=== PATIENT | female | born 1990 | race Caucasian/White ===

== ENCOUNTER 2019-03-15 00:11 | Emergency (ER) | payer BC, MEDICAID ==
--- NOTE | 2019-03-15 00:38 | ERPHSYRPT ---
- History of Present Illness Time Seen by Provider: 03/15/19 00:38 Source: patient, family, other (Dad) Exam Limitations: no limitations Patient Subjective Stated Complaint: pt state she was at home sitting on couch when she felt a sudden stabbing pain in her l lower back. pt has just finished round of antibiotics for uti, states she felt better aftyer the antibiotic was completed Triage Nursing Assessment: pt is alert and oriented. gauradind left side. pt is crying and grimacing in pain. rates pain as 8/10 Physician History: patient was sitting on a couch and heard a pop in her back and it started hurting in the left midback below left scapula. Pain gets worse with movement of her trunk. patient just completed the antibiotic for UTI. Patient denies any urinary or genital system symptoms. Timing/Duration: today Method of Injury: bending Quality: sharp Back Pain Location: paraspinous muscles (left thoracic paraspinal muscle.) Severity of Pain-Max: severe Severity of Pain-Current: severe Modifying Factors: Improves With: movement Associated Symptoms: muscle spasms, No fever, No chills, No sweating, No urinary incontinence, No loss of bowel control, No constipation, No nausea, No vomiting, No problems urinating, No light-headedness, No dizziness, No numbness in legs/feet, No weakness, No sensory/motor loss, No tingling in legs/feet, No lower back pain Previous symptoms: no prior history Allergies/Adverse Reactions: Sulfa (Sulfonamide Antibiotics) Allergy (Verified 03/15/19 00:26) Hx Tetanus, Diphtheria Vaccination/Date Given: Yes Hx Influenza Vaccination/Date Given: No Hx Pneumococcal Vaccination/Date Given: No - Review of Systems Constitutional: No Fever, No Chills Eyes: No Symptoms Ears, Nose, & Throat: No Symptoms Respiratory: No Cough, No Dyspnea Cardiac: No Chest Pain, No Edema, No Syncope Abdominal/Gastrointestinal: No Abdominal Pain, No Nausea, No Vomiting, No Diarrhea Genitourinary Symptoms: Other (LMP now, denies ingesting .), No Dysuria Musculoskeletal: Other (left infrascapular thoracic area paraspinal muscle pain , spasm, weight tenderness.), No Back Pain, No Neck Pain Skin: No Rash Neurological: No Dizziness, No Focal Weakness, No Paralysis, No Parasthesia, No Seizure, No Sensory Changes, No Speech Changes, No Tremors Psychological: No Symptoms Endocrine: No Symptoms All Other Systems: Reviewed and Negative - Past Medical History Pertinent Past Medical History: No - Past Surgical History Past Surgical History: No - Social History Smoking Status: Never smoker Exposure to second hand smoke: No Drug Use: none Patient Lives Alone: No - Female History Hx Last Menstrual Period: 03/14/19 Hx Now: No - Nursing Vital Signs Nursing Vital Signs: Initial Vital Signs Temperature 97.1 F 03/15/19 00:18 Pulse Rate 76 03/15/19 00:18 Respiratory Rate 18 03/15/19 00:18 Blood Pressure 124/72 03/15/19 00:18 O2 Sat by Pulse Oximetry 97 03/15/19 00:18 Pain Scale Pain Intensity 8 - Physical Exam General Appearance: no apparent distress, alert, other (patient examined in the presence of her father.) Eye Exam: PERRL/EOMI, eyes nml inspection Neck Exam: normal inspection, non-tender, supple, full range of motion, No meningismus, No midline tenderness Respiratory Exam: normal breath sounds, lungs clear, No chest tenderness, No respiratory distress Cardiovascular Exam: regular rate/rhythm, normal heart sounds, normal peripheral pulses Gastrointestinal Exam: soft, normal bowel sounds, No tenderness, No distention, No mass, No guarding, No ecchymosis, No pulsatile mass, No rebound, No hernia, No hepatomegaly, No organomegaly, No splenomegaly, No bruit Pelvic Exam: deferred Rectal Exam: deferred Back Exam: normal inspection, decreased range of motion, muscle spasm, other ( left infrascapular thoracic area paraspinal muscle pain, spasm, weight tenderness.painful range of motion of.), No CVA tenderness, No vertebral tenderness, No rash, No point tenderness Extremity Exam: normal inspection, normal range of motion, No calf tenderness, No pedal edema Neurologic Exam: alert, oriented x 3, cooperative, 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, normal mood/affect, nml station & gait, sensation nml, No motor deficits Skin Exam: normal color, warm, dry, No rash, No cyanosis SpO2 Interpretation: normal SpO2: 97 O2 Delivery: Room Air - Course Nursing assessment & vital signs reviewed: Yes Ordered Tests: Medication Summary Discontinued Medications Generic Name Dose Route Start Last Admin Trade Name Freq PRN Reason Stop Dose Admin Hydrocodone Bitart/Acetaminophen 1 tab 03/15/19 00:42 [place] 5/325 Mg PO 03/15/19 00:43 STAT ONE Hydrocodone Bitart/Acetaminophen Confirm 03/15/19 00:48 [place] 5/325 Mg Administered 03/15/19 00:49 Dose 1 tab .ROUTE .STK-MED ONE Cyclobenzaprine HCl 10 mg 03/15/19 00:42 Cyclobenzaprine 10 Mg PO 03/15/19 00:43 STAT ONE Cyclobenzaprine HCl Confirm 03/15/19 00:48 Cyclobenzaprine 10 Mg Administered 03/15/19 00:49 Dose 10 mg .ROUTE .STK-MED ONE Dexamethasone Sodium Phosphate 4 mg 03/15/19 00:42 Decadron 10mg Inj. IM 03/15/19 00:43 STAT ONE Dexamethasone Sodium Phosphate Confirm 03/15/19 00:43 Decadron 4 Mg Inj Administered 03/15/19 00:44 Dose 4 mg .ROUTE .STK-MED ONE Ketorolac Tromethamine 30 mg 03/15/19 00:42 Toradol 30 Mg Injection IM 03/15/19 00:43 STAT ONE Ketorolac Tromethamine Confirm 03/15/19 00:48 Toradol 30 Mg Injection Administered 03/15/19 00:49 Dose 30 mg .ROUTE .STK-MED ONE Lidocaine HCl 4 ml 03/15/19 00:42 Xylocaine 1% Hcl 20 Ml Mdv IJ 03/15/19 00:43 STAT ONE Lidocaine HCl Confirm 03/15/19 00:43 Xylocaine 1% Hcl 20 Ml Mdv Administered 03/15/19 00:44 Dose 1 ml .ROUTE .STK-MED ONE Ondansetron HCl 4 mg 03/15/19 00:47 Zofran Odt 4 Mg PO 03/15/19 00:48 STAT ONE - Progress Progress: unchanged Progress Note: left thoracic or infrascapular paraspinal trigger point injection done with lidocaine 1% 4 mL and 4 mg of Decadron under aseptic precautions in presence of patient's father and also female nurse. No complications. Patient tolerated the procedure well. No life or limb threatening condition on discharge. 03/15/19 00:48 03/15/19 00:57 I advised the patient and her father that day showed that come back to the ER in case of any emergency or new symptoms or worsening symptoms. They understood and agreed with the plan. No life or limb threatening condition based on my clinical judgment on discharge. - Departure Departure Disposition: Home Clinical Impression: Thoracic myofascial strain Qualifiers: Encounter type: initial encounter Qualified Code(s): S29.019A - Strain of muscle and tendon of unspecified wall of thorax, initial encounter Condition: Good Critical Care Time: No Referrals: MARIA T VAUGHAN NP [Primary Care Provider] - 03/16/19 Forms: Work/School Release Form Prescriptions: Cyclobenzaprine HCl 10 mg [Cyclobenzaprine 10 MG] 10 mg PO BID 4 Days #8 tablet Indomethacin 25 mg [Indocin 25 MG] 25 mg PO BID 4 Days #8 capsule
[2019-03-15] MEDS ORDERED: NORCO 5/325 MG PO ONE (00:42)
[2019-03-15] MEDS ORDERED: TORAdol 30 mg Injection IM ONE (00:42)
[2019-03-15] MEDS ORDERED: DECADRON 10MG INJ. IM ONE (00:42)
[2019-03-15] MEDS ORDERED: XYLOCAINE 1% HCL 20 ML MDV IJ ONE (00:42)
[2019-03-15] MEDS ORDERED: Cyclobenzaprine 10 MG PO ONE (00:42)
[2019-03-15] MEDS ORDERED: XYLOCAINE 1% HCL 20 ML MDV ONE (00:43)
[2019-03-15] MEDS ORDERED: Decadron 4 MG INJ ONE (00:43)
[2019-03-15] MEDS ORDERED: ZOFRAN ODT 4 MG PO ONE (00:47)
[2019-03-15] MEDS ORDERED: Cyclobenzaprine 10 MG ONE (00:48)
[2019-03-15] MEDS ORDERED: TORAdol 30 mg Injection ONE (00:48)
[2019-03-15] MEDS ORDERED: NORCO 5/325 MG ONE (00:48)
[2019-03-15] MEDS ORDERED: ZOFRAN ODT 4 MG ONE (01:14)
[2019-03-15 01:55] VITALS: BP 105/55; PULSE 55; O2SAT 99
== END 2019-03-15 02:06 | disposition home or self-care (01) ==
LOC: ED 00:11
DX: S29.019A Strain of muscle and tendon of unspecified wall of thorax, initial encounter (principal)
CPT/HCPCS: 96372; 99284; J1100; J1885; Q0162; A9270-GY

== ENCOUNTER 2019-05-24 20:47 | Emergency (ER) | payer MEDICAID ==
[2019-05-24] MEDS ORDERED: Zofran 4 MG/2 ML VIAL IV ONE (21:45)
[2019-05-24] MEDS ORDERED: TORAdol 30 mg Injection IV ONE (21:46)
--- NOTE | 2019-05-24 21:46 | ERPHSYRPT ---
- History of Present Illness Time Seen by Provider: 05/24/19 21:28 Historian: patient, family Exam Limitations: no limitations Patient Subjective Stated Complaint: Sharp upper abdomen pain starting approximately 6 days ago. Has had nausea, diarrhea and decreased appetite. Went to [facility] today and had urinalysis, blood work and [facility] . Triage Nursing Assessment: Patient skin warm and dry, lips chapped. Patient guarding abdomen and is tender to palpation. Nausea at this time without emesis. Hypoactive bowel sounds over all quads, RUQ worse. Unable to even sip water without nausea. Physician History: POSITIVE RUQ TENDERNESS ; STARTED TUESDAY AT WORK AFTER EATING A SANDWICH . GENERALLY HEALTHY LAST MENSES 2 WEEKS AGO . NEGATIVE FEVER /CHILLS. 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 Timing/Duration: day(s) (6-7) Activities at Onset: none Quality: cramping, sharpness Abdominal Pain Onset Location: RUQ, LUQ, RLQ Pain Radiation: scapula, back Severity of Pain-Max: moderate Severity of Pain-Current: moderate Modifying Factors: Improves With: eating Associated Symptoms: nausea Previous symptoms: no prior history Allergies/Adverse Reactions: Sulfa (Sulfonamide Antibiotics) Allergy (Verified 05/24/19 21:49) Hx Tetanus, Diphtheria Vaccination/Date Given: Yes Hx Influenza Vaccination/Date Given: No Hx Pneumococcal Vaccination/Date Given: No - Review of Systems Constitutional: Fatigue Eyes: No Symptoms Ears, Nose, & Throat: No Symptoms Respiratory: No Symptoms Cardiac: No Symptoms Abdominal/Gastrointestinal: Abdominal Pain, Nausea, Other (PAIN) Genitourinary Symptoms: No Symptoms Musculoskeletal: Back Pain Skin: No Symptoms Neurological: No Symptoms Psychological: No Symptoms Endocrine: No Symptoms Hematologic/Lymphatic: No Symptoms Immunological/Allergic: No Symptoms All Other Systems: Reviewed and Negative - Past Medical History Pertinent Past Medical History: No Neurological History: No Pertinent History ENT History: No Pertinent History Cardiac History: No Pertinent History Respiratory History: No Pertinent History Endocrine Medical History: No Pertinent History Musculoskeletal History: No Pertinent History GI Medical History: No Pertinent History History: No Pertinent History Psycho-Social History: No Pertinent History Female Reproductive Disorders: No Pertinent History - Past Surgical History Past Surgical History: Yes (tubes in ears) Neuro Surgical History: No Pertinent History Cardiac: No Pertinent History Respiratory: No Pertinent History Gastrointestinal: No Pertinent History Genitourinary: No Pertinent History Musculoskeletal: No Pertinent History Female Surgical History: No Pertinent History - Social History Smoking Status: Never smoker Exposure to second hand smoke: No Drug Use: none Patient Lives Alone: No - Female History Hx Last Menstrual Period: 2 weeks ago Hx Now: No - Nursing Vital Signs Nursing Vital Signs: Initial Vital Signs Temperature 98.2 F 05/24/19 20:48 Pulse Rate 92 H 05/24/19 20:48 Respiratory Rate 20 05/24/19 20:48 Blood Pressure 110/74 05/24/19 20:48 O2 Sat by Pulse Oximetry 98 05/24/19 20:48 Pain Scale Pain Intensity 2 - Physical Exam General Appearance: mild distress Eye Exam: PERRL/EOMI, eyes nml inspection Ears, Nose, Throat Exam: normal ENT inspection, TMs normal, pharynx normal, moist mucous membranes Neck Exam: normal inspection, non-tender, supple, full range of motion, No meningismus Respiratory Exam: normal breath sounds, chest tenderness, lungs clear, No respiratory distress Cardiovascular Exam: regular rate/rhythm, normal heart sounds, normal peripheral pulses, No murmur, No friction rub Gastrointestinal/Abdomen Exam: tenderness (RLQ,RUQ), rebound (RUQ/RLQ), No guarding, No organomegaly, No splenomegaly Pelvic Exam: other (DENIES PAIN WITH INTERCOARSE DENIES VAG D/C OR UTI 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 ) Back Exam: normal inspection, normal range of motion, No CVA tenderness, No vertebral tenderness, No decreased range of motion Extremity Exam: normal inspection, normal range of motion, pelvis stable Neurologic Exam: alert, oriented x 3, cooperative, 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, normal mood/affect, nml cerebellar function, nml station & gait Skin Exam: normal color, warm, dry, rash, petechiae Lymphatic Exam: adenopathy, axilla node tender (L), axilla node tender (R) SpO2 Interpretation: normal SpO2: 98 O2 Delivery: Room Air - Course Nursing assessment & vital signs reviewed: Yes Ordered Tests: Active Orders 24 hr Category Date Time Status IV Insertion STAT Care 05/24/19 21:44 Active ABDOMEN AND PELVIS W CONTRAST [CT] Stat Exams 05/24/19 23:28 Taken GALLBLADDER [US] Stat Exams 05/24/19 22:49 Taken KUB Stat Exams 05/24/19 22:25 Taken CBC W DIFF Stat Lab 05/24/19 21:50 Completed CMP Stat Lab 05/24/19 21:50 Completed Medication Summary Discontinued Medications Generic Name Dose Route Start Last Admin Trade Name Patti PRN Reason Stop Dose Admin Hyoscyamine 0.25 mg 05/25/19 00:40 05/25/19 01:05 Anaspaz 0.125 Mg PO 05/25/19 00:41 0.25 mg 1XONLY ONE Administration Ketorolac Tromethamine 30 mg 05/24/19 21:46 05/24/19 21:49 Toradol 30 Mg Injection IV 05/24/19 21:47 30 mg STAT ONE Administration Ketorolac Tromethamine Confirm 05/24/19 21:47 Toradol 30 Mg Injection Administered 05/24/19 21:48 Dose 30 mg .ROUTE .STK-MED ONE Ondansetron HCl 4 mg 05/24/19 21:45 05/24/19 21:49 Zofran 4 Mg/2 Ml Vial IV 05/24/19 21:46 4 mg STAT ONE Administration Ondansetron HCl Confirm 05/24/19 21:47 Zofran 4 Mg/2 Ml Vial Administered 05/24/19 21:48 Dose 4 mg .ROUTE .STK-MED ONE Lab/Rad Data: Laboratory Result Diagrams 05/24/19 21:50 05/24/19 21:50 Laboratory Results 05/24/19 05/24/19 Range/Units 21:50 21:50 WBC 10.1 (4.0-10.5) K/mm3 RBC 4.43 (4.1-5.4) M/mm3 Hgb 13.7 (12.0-16.0) gm/dl Hct 39.9 (35-47) % MCV 90.1 (78-100) fl MCH 30.9 (26-32) pg MCHC 34.3 (32-36) g/dl RDW 12.1 (11.5-14.0) % Plt Count 249 (150-450) K/mm3 MPV 9.4 (6-9.5) fl Gran % 84.7 H (36.0-66.0) % Eos # (Auto) 0.15 (0-0.5) Absolute Lymphs (auto) 0.76 L (1.0-4.6) Absolute Monos (auto) 0.62 (0.0-1.3) Lymphocytes % 7.5 L (24.0-44.0) % Monocytes % 6.2 (0.0-12.0) % Eosinophils % 1.5 (0.00-5.0) % Basophils % 0.1 (0.0-0.4) % Absolute Granulocytes 8.54 H (1.4-6.9) Basophils # 0.01 (0-0.4) Sodium 137 (137-145) mmol/L Potassium 3.9 (3.5-5.1) mmol/L Chloride 104 (98-107) mmol/L Carbon Dioxide 23 (22-30) mmol/L Anion Gap 14.7 (5-15) MEQ/L BUN 16 (7-17) mg/dL Creatinine 0.66 (0.52-1.04) mg/dL Estimated GFR > 60.0 ML/MIN Glucose 95 (74-106) mg/dL Calcium 9.2 (8.4-10.2) mg/dL Total Bilirubin 1.10 (0.2-1.3) mg/dL AST 24 (14-36) U/L ALT 15 (0-35) U/L Alkaline Phosphatase 75 (38-126) U/L Serum Total Protein 7.9 (6.3-8.2) g/dL Albumin 4.3 (3.5-5.0) g/dL - Progress Progress: improved Counseled pt/family regarding: lab results, diagnosis, need for follow-up, rad results - Departure Departure Disposition: Home Clinical Impression: IBS (irritable bowel syndrome) Qualifiers: Irritable bowel syndrome type: without diarrhea Qualified Code(s): K58.9 - Irritable bowel syndrome without diarrhea Condition: Stable Critical Care Time: No Referrals: DIVYA CATALAN [Primary Care Provider] -
[2019-05-24] MEDS ORDERED: Zofran 4 MG/2 ML VIAL ONE (21:47)
[2019-05-24] MEDS ORDERED: TORAdol 30 mg Injection ONE (21:47)
[2019-05-24 21:56] LABS: Absolute Neutrophil Ct (ANC) 8.54 (1.4-6.9); BASOPHIL % 0.1 % (0.0-0.4); Basophil (Absolute #) 0.01 (0-0.4); Eosinophil % 1.5 % (0.00-5.0); Eosinophil (Absolute #) 0.15 (0-0.5); Hematocrit 39.9 % (35-47); Hemoglobin 13.7 gm/dl (12.0-16.0); Lymphocyte (Absolute #) 0.76 (1.0-4.6); Lymphocytes % 7.5 % (24.0-44.0); Mean Cell Volume 90.1 fl (78-100); Mean Corpuscular Hemoglobin 30.9 pg (26-32); Mean Corpuscular Hgb Concent. 34.3 g/dl (32-36); Mean Platelet Volume 9.4 fl (6-9.5); Monocyte (Absolute #) 0.62 (0.0-1.3); Monocytes % 6.2 % (0.0-12.0); Neutrophil % 84.7 % (36.0-66.0); Platelet Count 249 K/mm3 (150-450); Red Blood Count 4.43 M/mm3 (4.1-5.4); Red Cell Distribution Width 12.1 % (11.5-14.0); White Blood Count 10.1 K/mm3 (4.0-10.5)
[2019-05-24 22:14] LABS: ALBUMIN 4.3 g/dL (3.5-5.0); ALKALINE PHOSPHATASE 75 U/L (38-126); ANION GAP 14.7 MEQ/L (5-15); BLOOD UREA NITROGEN 16 mg/dL (7-17); CHLORIDE 104 mmol/L (98-107); Calcium 9.2 mg/dL (8.4-10.2); Carbon Dioxide 23 mmol/L (22-30); Creatinine 1 0.66 mg/dL (0.52-1.04); Glucose 95 mg/dL (74-106); Potassium 3.9 mmol/L (3.5-5.1); SGOT/AST 24 U/L (14-36); SGPT/ALT 15 U/L (0-35); SODIUM 137 mmol/L (137-145); Total Protein 7.9 g/dL (6.3-8.2)
[2019-05-25] MEDS ORDERED: ANASPAZ 0.125 MG PO ONE (00:40)
[2019-05-25 01:19] VITALS: BP 106/71; PULSE 90
[2019-05-25 01:22] VITALS: O2SAT 98
--- NOTE | 2019-05-25 09:32 | XRAY ---
Exam: Supine film of the abdomen from 05/24/2019. Comparison: None. Indication: Right sided abdominal pain in upper and lower abdomen, nausea/vomiting, and diarrhea. Findings: The bowel gas pattern appears nonspecific. No abnormal bowel distention is seen. A mild amount of scattered stool is seen within the colon. The superior aspect of the upper abdomen has not been included on this study. No definite hepatosplenomegaly is seen. No suspicious abdominal calcifications are noted. The psoas muscle margins appear unremarkable bilaterally. The bones appear unremarkable. Impression: 1. Nonspecific bowel gas pattern with a mild amount of scattered colonic stool. 2. No other significant abnormality is seen on the AP supine film of the abdomen.
--- NOTE | 2019-05-25 09:47 | XRAY ---
Exam: Gallbladder ultrasound from 05/24/2019. Comparison: None. Indication: Right upper quadrant abdominal pain. Findings: Both a portion of the pancreatic head and distal tail the pancreas were partially obscured by overlying bowel gas. The remainder of the pancreas appeared of unremarkable size, shape, and echogenicity. The liver appeared of average size and uniform echotexture. No definite hepatic mass or intrahepatic biliary duct distention is seen. The gallbladder appears of unremarkable size and reveals no intraluminal gallstones or significant biliary sludge. The gallbladder wall is not thickened measuring 1.6 mm in diameter. No pericholecystic fluid or edema is seen. The proximal common bile duct measures 2.0 mm which is normal. The right kidney measures 9.6 cm in length and reveals no gross renal mass or hydronephrosis. No dominant echogenic renal stone is identified. Impression: 1. Unremarkable gallbladder ultrasound. Specifically, I see no evidence of cholelithiasis, gallbladder enlargement, gallbladder wall thickening, or biliary duct distention. 2. Evaluation of the pancreas was limited due to bowel gas partially obscuring the pancreatic head and pancreatic tail.
--- NOTE | 2019-05-25 10:32 | XRAY ---
Exam: CT of the abdomen and pelvis with IV contrast only from 05/24/2019. CTDI: 9.25 Comparison: None. Indication: 29-year-old female with right-sided abdominal pain within both upper and lower abdomen, nausea/vomiting, and diarrhea. Earlier negative gallbladder ultrasound. Consider appendicitis. Technique: Post-IV contrast axial images were obtained through the abdomen during automated injection of 80 ML's of Isovue 370 IV contrast material. No oral contrast was given. Reconstructed coronal and sagittal images were created and reviewed. Findings: On the CT weight reduction specialist image, there is slight convexity of the spine toward the right near the thoracolumbar junction. This could be due to a problem patient positioning or a minimal dextroscoliosis. Correlate clinically. The visualized lung bases appear clear. The liver, spleen, pancreas, and adrenal glands appear grossly unremarkable. No dense calcification is seen within a normal-sized gallbladder. The kidneys appear of unremarkable size and shape. No renal mass, renal calculi, or hydronephrosis is seen. The kidneys function well on the delayed images with uniform parenchymal opacification. The abdominal aorta appears of normal diameter. No abnormal retroperitoneal lymphadenopathy is seen. There is a suggestion of a few mildly prominent mesenteric lymph nodes within the upper abdomen to the left of midline. Significance is uncertain, but equivocal. There is no evidence of free intraperitoneal air or ventral abdominal wall hernia. No bowel distention or abnormal bowel wall thickening is seen. Scattered colonic stool is seen. The appendix is visualized within the right lower quadrant and appears unremarkable without appendicolith. The uterus is anteflexed and tilted slightly to the left of midline. The ovaries appeared grossly unremarkable. No enlarged pelvic lymph nodes are seen. There is no free intraperitoneal fluid. The deep pelvic sidewalls appear unremarkable. The distal ureters are partially opacified on delay images. The urinary bladder is partially distended and appears unremarkable. The skeleton reveals no acute fracture or aggressive bone lesion. There is mild focal sclerosis on the iliac side of the right sacroiliac joint which I believe is benign and probably due to unilateral osteitis condenses ilii. On the sagittal images, there is a suggestion of mild pectus excavatum deformity at the xiphoid process. Impression: 1. No findings of acute appendicitis are seen within the right lower quadrant. 2. No other acute intra-abdominal process is noted. 3. Some other incidental findings are seen, as discussed above.
== END 2019-05-25 01:39 | disposition home or self-care (01) ==
LOC: ED 20:47
DX: K58.9 Irritable bowel syndrome, unspecified (principal)
CPT/HCPCS: 36000; 36415; 74018; 74177; 76705; 80053; 81001; 82150; 83690; 85025; 87086; 96374; 96375; 99284; J1885; J2405; A9270-GY

== ENCOUNTER 2022-04-22 20:03 | Emergency (ER) | payer OTHER ==
[2022-04-22] MEDS ORDERED: TYLENOL 325 MG PO ONE (20:46)
[2022-04-22] MEDS ORDERED: TYLENOL 325 MG ONE (21:03)
[2022-04-22 21:04] LABS: Absolute Neutrophil Ct (ANC) 6.41 x10^3/uL (1.4-6.9); Basophil (Absolute #) 0.02 x10^3/uL (0-0.4); Eosinophil % 2.9 % (0.00-5.0); Eosinophil (Absolute #) 0.28 x10^3/uL (0-0.5); Lymphocytes % 24.7 % (24.0-44.0); Mean Cell Volume 90.1 fL (78-100); Mean Corpuscular Hgb Concent. 33.3 g/dL (32-36); Mean Platelet Volume 8.7 fL (7.5-11.0); Monocyte (Absolute #) 0.57 x10^3/uL (0.0-1.3); Monocytes % 5.9 % (0.0-12.0); Platelet Count 268 x10^3/uL (150-450); Red Blood Count 3.33 x10^6/uL (4.1-5.4); White Blood Count 9.7 x10^3/uL (4.0-10.5)
[2022-04-22 21:10] LABS: Appearance CLEAR (CLEAR)
[2022-04-22 21:11] LABS: Bilirubin NEGATIVE (NEGATIVE); Dipstick done @ ? MAIN LAB; Glucose NEGATIVE (NEGATIVE); Ketones NEGATIVE (NEGATIVE); Nitrite NEGATIVE (NEGATIVE); Protein,Urine Dip 30 (Negative); RBC NEGATIVE Ery/ul (0-5); Specific Gravity >=1.030 (1.005-1.025); Urobilinogen 0.2 mg/dL (0-1)
[2022-04-22 21:18] LABS: ALBUMIN 3.4 g/dL (3.5-5.0); ALKALINE PHOSPHATASE 70 U/L (38-126); ANION GAP 8.7 MEQ/L (5-15); BLOOD UREA NITROGEN 13 mg/dL (7-17); CHLORIDE 106 mmol/L (98-107); Calcium 8.3 mg/dL (8.4-10.2); Carbon Dioxide 25 mmol/L (22-30); Creatinine 1 0.68 mg/dL (0.52-1.04); EST GLOMERULAR FILTRATION RATE > 60.0 ML/MIN; Glucose 126 mg/dL (74-106); Potassium 3.9 mmol/L (3.5-5.1); SGOT/AST 18 U/L (14-36); SGPT/ALT 16 U/L (0-35); SODIUM 136 mmol/L (137-145); Total Protein 6.4 g/dL (6.3-8.2)
[2022-04-22 21:19] LABS: Epithelial Cells RARE /HPF (FEW); Mucus SLIGHT /HPF (NEGATIVE); RBC 0-2 /HPF (0-2); WBC 0-2 /HPF (0-5)
[2022-04-22 21:20] LABS: Bacteria NONE SEEN /HPF (NEGATIVE); Urine Cultured Indicated? YES
--- NOTE | 2022-04-22 21:50 | ERPHSYRPT ---
- History of Present Illness Time Seen by Provider: 04/22/22 20:14 Historian: patient Exam Limitations: no limitations Patient Subjective Stated Complaint: pt states she is 17 weeks with twins and has been having sharp stabbing pain in the rlq of abdomen. pt states she had this same pain after falling 2 weeks ago. pt states the pain lasts for a few seconds at a time and rates 8 on 1-10 pain scale Triage Nursing Assessment: normal for this stage of . no vaginal bleeding or reported cramping. ob nurse here obtaining fhr. baby a fhr 140. baby b fhr 156 . pt on contraction monitor currently. ob nurse to assess the monitor strip at 2100. pt currently refusing iv and is taking po fluids well Physician History: 32 years old 2 para 1 at 17 weeks twin gestation presented to the ER with chief complaint of right lower quadrant sharp twinging pain lasting for few seconds intermittently for almost an hour moderate intensity and improves on its own. Denies any aggravating factors. Denies associated urinary complaints. No vaginal bleeding or discharge. Reports having similar kind of pain 2 weeks ago when she fell. No nausea or vomiting. Timing/Duration: hour(s) (1), intermittent, sudden, improved Activities at Onset: rest Quality: sharpness Abdominal Pain Onset Location: RLQ Severity of Pain-Max: moderate Severity of Pain-Current: none Modifying Factors: Improves With: nothing Associated Symptoms: denies symptoms Previous symptoms: same symptoms as today Allergies/Adverse Reactions: Sulfa (Sulfonamide Antibiotics) Allergy (Mild, Verified 04/22/22 20:46) Home Medications: Aspirin 81 gm Chew [Baby Aspirin 81 mg Chew] 162 mg PO DAILY 04/22/22 [History] Calcium Carb/Vitamin D3/Vit K1 [Calcium + D Soft Chewable Tab] 1 tab PO HS 04/22/22 [History] Docusate Sodium [Colace] 100 mg PO HS 04/22/22 [History] Folic Acid 20 mg PO HS 04/22/22 [History] Iron,Carb/Vit C/Vit B12/Folic [Iron 100 Plus Tablet] 1 tab PO HS 04/22/22 [History] Vit37/Iron/Folic Acid [Prenata Chewable Tablet] 1 each PO HS 04/22/22 [History] Hx Tetanus, Diphtheria Vaccination/Date Given: Yes Hx Influenza Vaccination/Date Given: No Hx Pneumococcal Vaccination/Date Given: No Travel Risk - International Travel Have you traveled outside of the country in past 3 weeks: No - Coronavirus Screening Are you exhibiting any of the following symptoms?: No Close contact with a COVID-19 positive Pt in past 14-21 Days: No - Vaccine Status Have you recieved a Covid-19 vaccination: Yes [employer]: [employer] - Vaccination Dates Date of 2cond Vaccination (if applicable): 2020 - Review of Systems Constitutional: No Symptoms Ears, Nose, & Throat: No Symptoms Respiratory: No Symptoms Cardiac: No Symptoms Abdominal/Gastrointestinal: Abdominal Pain Genitourinary Symptoms: Musculoskeletal: No Symptoms Skin: No Symptoms Neurological: No Symptoms Endocrine: No Symptoms Hematologic/Lymphatic: No Symptoms - Past Medical History Pertinent Past Medical History: No Neurological History: No Pertinent History ENT History: No Pertinent History Cardiac History: No Pertinent History Respiratory History: No Pertinent History Endocrine Medical History: No Pertinent History Musculoskeletal History: No Pertinent History GI Medical History: No Pertinent History History: No Pertinent History Psycho-Social History: No Pertinent History Female Reproductive Disorders: No Pertinent History - Past Surgical History Past Surgical History: Yes (tubes in ears) Neuro Surgical History: No Pertinent History Cardiac: No Pertinent History Respiratory: No Pertinent History Gastrointestinal: No Pertinent History Genitourinary: No Pertinent History Musculoskeletal: No Pertinent History Female Surgical History: No Pertinent History - Social History Smoking Status: Never smoker Exposure to second hand smoke: No Drug Use: none Patient Lives Alone: No - Female History Hx Now: Yes Expected Date of Delivery: 09/30/22 Gestational Age: 17 - Nursing Vital Signs Nursing Vital Signs: Initial Vital Signs Temperature 98 F 04/22/22 20:19 Pulse Rate 87 04/22/22 20:19 Respiratory Rate 20 04/22/22 20:19 Blood Pressure 128/65 04/22/22 20:19 O2 Sat by Pulse Oximetry 98 04/22/22 20:19 Pain Scale Pain Intensity 0 - Physical Exam General Appearance: no apparent distress, alert Eye Exam: PERRL/EOMI Ears, Nose, Throat Exam: normal ENT inspection Neck Exam: normal inspection, supple, full range of motion Respiratory Exam: normal breath sounds, lungs clear Cardiovascular Exam: regular rate/rhythm, normal heart sounds Gastrointestinal/Abdomen Exam: soft, normal bowel sounds, other (Gravid uterus), No tenderness Back Exam: normal inspection, normal range of motion, No CVA tenderness Extremity Exam: normal inspection, normal range of motion, tenderness Neurologic Exam: oriented x 3, cooperative Skin Exam: normal color SpO2 Interpretation: normal SpO2: 100 O2 Delivery: Room Air Ordered Tests: Active Orders 24 hr Category Date Time Status IV Insertion STAT Care 04/22/22 20:46 Active CBC W DIFF Stat Lab 04/22/22 21:00 Completed CMP Stat Lab 04/22/22 21:00 Completed CULTURE,URINE Stat Lab 04/22/22 21:00 Received UA W/RFX CULTURE Stat Lab 04/22/22 21:00 Completed Medication Summary Discontinued Medications Generic Name Dose Route Start Last Admin Trade Name Patti PRN Reason Stop Dose Admin Acetaminophen 975 mg 04/22/22 20:46 04/22/22 21:03 Acetaminophen 325 Mg Tablet PO 04/22/22 20:47 975 mg STAT ONE Administration Acetaminophen Confirm 04/22/22 21:03 Acetaminophen 325 Mg Tablet Administered 04/22/22 21:04 Dose 975 mg .ROUTE .Havkraft-Infratel ONE Lab/Rad Data: Laboratory Result Diagrams 04/22/22 21:00 04/22/22 21:00 Laboratory Results 04/22/22 04/22/22 04/22/22 Range/Units 21:00 21:00 21:00 WBC 9.7 (4.0-10.5) x10^3/uL RBC 3.33 L (4.1-5.4) x10^6/uL Hgb 10.0 L (12.0-16.0) g/dL Hct 30.0 L (35-47) % MCV 90.1 (78-100) fL MCH 30.0 (26-32) pg MCHC 33.3 (32-36) g/dL RDW 13.0 (11.5-14.0) % Plt Count 268 (150-450) x10^3/uL MPV 8.7 (7.5-11.0) fL Gran % 66.0 (36.0-66.0) % Immature Gran % (Auto) 0.3 (0.00-0.4) % Nucleat RBC Rel Count 0.0 (0.00-0.1) % Eos # (Auto) 0.28 (0-0.5) x10^3/uL Immature Gran # (Auto) 0.03 (0.00-0.03) x10^3u/L Absolute Lymphs (auto) 2.40 (1.0-4.6) x10^3/uL Absolute Monos (auto) 0.57 (0.0-1.3) x10^3/uL Absolute Nucleated RBC 0.00 (0.00-0.01) x10^3u/L Lymphocytes % 24.7 (24.0-44.0) % Monocytes % 5.9 (0.0-12.0) % Eosinophils % 2.9 (0.00-5.0) % Basophils % 0.2 (0.0-0.4) % Absolute Granulocytes 6.41 (1.4-6.9) x10^3/uL Basophils # 0.02 (0-0.4) x10^3/uL Sodium 136 L (137-145) mmol/L Potassium 3.9 (3.5-5.1) mmol/L Chloride 106 (98-107) mmol/L Carbon Dioxide 25 (22-30) mmol/L Anion Gap 8.7 (5-15) MEQ/L BUN 13 (7-17) mg/dL Creatinine 0.68 (0.52-1.04) mg/dL Estimated GFR > 60.0 ML/MIN Glucose 126 H (74-106) mg/dL Calcium 8.3 L (8.4-10.2) mg/dL Total Bilirubin 0.30 (0.2-1.3) mg/dL AST 18 (14-36) U/L ALT 16 (0-35) U/L Alkaline Phosphatase 70 (38-126) U/L Serum Total Protein 6.4 (6.3-8.2) g/dL Albumin 3.4 L (3.5-5.0) g/dL Urinalys Dipstick Clnc MAIN LAB Urine Color YELLOW (YELLOW) Urine Appearance CLEAR (CLEAR) Urine pH 7.0 (5-6) Ur Specific [place] >=1.030 A (1.005-1.025) POC Urine Protein Conf 30 A (Negative) Urine Ketones NEGATIVE (NEGATIVE) Urine Nitrite NEGATIVE (NEGATIVE) Urine Bilirubin NEGATIVE (NEGATIVE) Urine Urobilinogen 0.2 (0-1) mg/dL Urine Leukocytes TRACE A (NEGATIVE) Urine WBC (Auto) 0-2 (0-5) /HPF Urine RBC (Auto) 0-2 (0-2) /HPF U Epithel Cells (Auto) RARE (FEW) /HPF Urine Bacteria (Auto) NONE SEEN (NEGATIVE) /HPF Urine RBC NEGATIVE (0-5) Lloyd/ul Urine Mucus (Auto) SLIGHT A (NEGATIVE) /HPF Ur Culture Indicated? YES Urine Glucose NEGATIVE (NEGATIVE) mg/dL - Progress Progress: improved Progress Note: 04/22/22 21:48 Patient pain is improved on its own without any intervention. She is given Tylenol and no further recurrence of pain throughout her stay in the ER. She is offered fluid bolus which she refused. Baseline work-up grossly unremarkable. No UTI. Good heart tones of both fetuses in 140s and 150s. I do not think patient's pain is concerning for acute appendicitis and its improved on its own. It seems it could be round ligament pain. Recommended Tylenol and outpatient OB follow-up. Discussed signs symptoms of worsening needing return to ER which she seems understanding. Stable for discharge. Counseled pt/family regarding: lab results, diagnosis, need for follow-up - Departure Departure Disposition: Home Clinical Impression: Abdominal pain affecting Condition: Stable Critical Care Time: No Referrals: YARA REED [Primary Care Provider] - Follow up/PCP as directed (1-2 days for reevaluation) Instructions: Severe Abdominal Pain, Adult (DC) Additional Instructions: Follow-up with your OB for reevaluation tomorrow morning. Drink plenty of fluids. Take Tylenol as needed. Return to ER if have any worsening of pain, vaginal bleeding discharge, difficulty urination, fever chills etc.
[2022-04-22 22:10] VITALS: BP 105/61; PULSE 81; O2SAT 99
== END 2022-04-22 22:13 | disposition home or self-care (01) ==
LOC: ED 20:03
DX: O26.892 Other specified pregnancy related conditions, second trimester (principal); Z3A.17 17 weeks gestation of pregnancy; R10.31 Right lower quadrant pain; Z79.899 Other long term (current) drug therapy
CPT/HCPCS: 36415; 80053; 81015; 85025; 87086; 99283; A9270-GY

== ENCOUNTER 2022-12-05 08:44 | Observation (INO) | payer MEDICAID, OTHER ==
[2022-12-05] MEDS ORDERED: MORPHINE SULFATE 2 MG INJ IV ONE (10:14)
[2022-12-05] MEDS ORDERED: TYLENOL 325 MG PO ONE (10:14)
[2022-12-05] MEDS ORDERED: Sodium Chloride 0.9% 1000 ML 1,000 ML IV STA (10:14)
[2022-12-05] MEDS ORDERED: Zofran 4 MG/2 ML VIAL IV ONE (10:14)
[2022-12-05] MEDS ORDERED: MORPHINE SULFATE 2 MG INJ ONE (10:31)
[2022-12-05] MEDS ORDERED: Zofran 4 MG/2 ML VIAL ONE (10:31)
[2022-12-05] MEDS ORDERED: TYLENOL 325 MG ONE (10:31)
[2022-12-05] MEDS ORDERED: Sodium Chloride 0.9% 1000 ML 1,000 ML ONE (10:32)
[2022-12-05 10:35] LABS: BASOPHIL % 0.2 % (0.0-0.4); Basophil (Absolute #) 0.03 x10^3/uL (0-0.4); Eosinophil % 0.1 % (0.00-5.0); Eosinophil (Absolute #) 0.01 x10^3/uL (0-0.5); IMMATURE GRAN # 0.16 x10^3u/L (0.00-0.03); IMMATURE GRAN % 0.8 % (0.00-0.4); Lymphocyte (Absolute #) 0.75 x10^3/uL (1.0-4.6); Lymphocytes % 3.8 % (24.0-44.0); Mean Cell Volume 89.9 fL (78-100); Mean Corpuscular Hgb Concent. 33.3 g/dL (32-36); Mean Platelet Volume 9.1 fL (7.5-11.0); Monocyte (Absolute #) 0.82 x10^3/uL (0.0-1.3); Monocytes % 4.2 % (0.0-12.0); Neutrophil % 90.9 % (36.0-66.0); Platelet Count 259 x10^3/uL (150-450); Red Blood Count 4.67 x10^6/uL (4.1-5.4); Red Cell Distribution Width 12.5 % (11.5-14.0); White Blood Count 19.7 x10^3/uL (4.0-10.5)
[2022-12-05 10:49] LABS: ALKALINE PHOSPHATASE 128 U/L (38-126); ANION GAP 17.3 MEQ/L (5-15); BLOOD UREA NITROGEN 15 mg/dL (7-17); CHLORIDE 95 mmol/L (98-107); Calcium 8.3 mg/dL (8.4-10.2); Carbon Dioxide 24 mmol/L (22-30); Creatinine 1 0.79 mg/dL (0.52-1.04); EST GLOMERULAR FILTRATION RATE > 60.0 ML/MIN; Glucose 129 mg/dL (74-106); LIPASE 72 U/L (23-300); Potassium 3.6 mmol/L (3.5-5.1); SGOT/AST 26 U/L (14-36); SGPT/ALT 30 U/L (0-35); SODIUM 134 mmol/L (137-145); Total Protein 7.9 g/dL (6.3-8.2)
[2022-12-05] MEDS ORDERED: MORPHINE SULFATE 4 MG INJ IV ONE (11:13)
[2022-12-05 11:30] LABS: INFLUENZA A NEGATIVE (NEGATIVE); INFLUENZA B NEGATIVE (NEGATIVE); RESPIRATORY SYNCTIAL VIRUS NEGATIVE (NEGATIVE); SARS-CoV-2 Xpert Express NEGATIVE (NEGATIVE)
[2022-12-05 11:30] LABS: HCG SERUM TEST NEGATIVE (NEGATIVE)
[2022-12-05 12:13] LABS: Appearance Clear (Clear); Bacteria None Seen /HPF (None Seen); Bilirubin Negative (Negative); Blood Large (Negative); Epithelial Cells Few /HPF (None Seen); Glucose, Urine Negative (Negative); Hyaline Casts NONE SEEN /LPF (0-2); Ketones 15 (Negative); Leukocyte Esterase Trace (Negative); Nitrite Negative (Negative); Protein,Urine Dip 300 (Negative); RBC 51-100 /HPF (0-5)
[2022-12-05 12:57] LABS: ADD URINE CULTURE? YES (NO)
--- NOTE | 2022-12-05 13:11 | XRAY ---
CLINICAL HISTORY:Headache. COMPARISON:None. TECHNIQUES:Axial non-contrast CT scan of the brain was performed from the skull base to the high parietal region with reformatted images. FINDINGS: The visualized brain parenchyma shows a normal appearance. Don-white matter differentiation is maintained. No midline shifts or deformity. No intracerebral or extra axial hematoma. Normal size and configuration of the cerebral ventricles. Tiny calcification at the anterior portion of the 3rd ventricle. Normal CT appearance of the posterior fossa structures namely the cerebellar hemispheres, brainstem, and cerebellar peduncles. The IACs are unremarkable. The cerebellopontine angles are clear. The osseous structures in the skull base are unremarkable. No definite calvarium fractures. Small left high frontal parasagittal extra-axial calcification. MIld sphenoid sinusitis. Enlarged nasopharyngeal soft tissue. IMPRESSION: 1. Essentially normal CT study of the brain. 2. Enlarged nasopharyngeal soft tissue, clinical correlation is recommended, and direct visualization may also be recommended as clinically indicated. Electronically Signed by: Jaky Espinoza MD. (12/05/2022 12:08:51 IMMUNOPATHOLOGIST)
--- NOTE | 2022-12-05 13:15 | ERPHSYRPT ---
- History of Present Illness Time Seen by Provider: 12/05/22 09:23 Source: patient, family Exam Limitations: no limitations Patient Subjective Stated Complaint: dehydration Triage Nursing Assessment: Patient presents with lethargy, headache, n/v and poor PO intake for the last 2-3 days. Physician History: 32 years old female presented in the ER with chief complaint of multiple episodes of nonprojectile, nonbilious vomiting since yesterday, not able to hold much down, feels weak fatigued tired and dehydrated. Also reports subjective feeling of fever and chills with frontal headache. No difficulty movements of neck. No visual disturbance. Denies any cough or difficulty breathing. She has no diarrhea and no abdominal pain. Did notice some blood in the urine earlier. reported patient has been sleeping all day long yesterday. She is complaining of aches and pains all over. Denies any sick contact. Timing/Duration: yesterday, gradual onset, worse Severity: moderate Associated Symptoms: nausea, vomiting, fever, headaches, loss of appetite, malaise, weakness, No shortness of breath, No chest pain, No syncope Allergies/Adverse Reactions: Sulfa (Sulfonamide Antibiotics) Allergy (Mild, Verified 12/05/22 12:11) Hx Tetanus, Diphtheria Vaccination/Date Given: Yes Hx Influenza Vaccination/Date Given: No Hx Pneumococcal Vaccination/Date Given: No Immunizations Up to Date: Yes Travel Risk - International Travel Have you traveled outside of the country in past 3 weeks: No - Coronavirus Screening Symptoms: Fever, Vomiting/Diarrhea, Headaches/Body Aches/Fatigue Close contact with a COVID-19 positive Pt in past 14-21 Days: No - Vaccine Status Have you recieved a Covid-19 vaccination: Yes Scrap [place]yer: Unknown - Vaccination Dates Dates if Unknown: unknown - Review of Systems Constitutional: Fever, Chills, Fatigue, Lethargy, Weakness Eyes: No Symptoms Ears, Nose, & Throat: No Symptoms Respiratory: No Symptoms Cardiac: No Symptoms Abdominal/Gastrointestinal: Nausea, Vomiting Genitourinary Symptoms: Hematuria Musculoskeletal: Myalgias Skin: No Symptoms Neurological: Headache, No Dizziness, No Focal Weakness Psychological: No Symptoms Endocrine: No Symptoms Hematologic/Lymphatic: No Symptoms Immunological/Allergic: No Symptoms - Past Medical History Pertinent Past Medical History: No Neurological History: No Pertinent History ENT History: No Pertinent History Cardiac History: No Pertinent History Respiratory History: No Pertinent History Endocrine Medical History: No Pertinent History Musculoskeletal History: No Pertinent History GI Medical History: No Pertinent History History: No Pertinent History Psycho-Social History: No Pertinent History Female Reproductive Disorders: No Pertinent History - Past Surgical History Past Surgical History: Yes (tubes in ears) Neuro Surgical History: No Pertinent History Cardiac: No Pertinent History Respiratory: No Pertinent History Gastrointestinal: No Pertinent History Genitourinary: No Pertinent History Musculoskeletal: No Pertinent History Female Surgical History: Section Other Surgical History: 2020 and 2022 - Social History Smoking Status: Never smoker Exposure to second hand smoke: No Drug Use: none Patient Lives Alone: No - Female History Hx Now: (unkn) - Nursing Vital Signs Nursing Vital Signs: Initial Vital Signs Temperature 100.5 F 12/05/22 09:45 Pulse Rate 83 12/05/22 09:45 Respiratory Rate 18 12/05/22 09:45 Blood Pressure 115/74 12/05/22 09:45 O2 Sat by Pulse Oximetry 94 L 12/05/22 09:45 Pain Scale Pain Intensity 4 - Physical Exam General Appearance: no apparent distress, alert Eye Exam: PERRL/EOMI Ears, Nose, Throat Exam: normal ENT inspection Neck Exam: normal inspection, non-tender, supple, No meningismus, No lymphadenopathy, No midline tenderness Respiratory Exam: normal breath sounds, lungs clear Cardiovascular Exam: regular rate/rhythm, normal heart sounds Gastrointestinal/Abdomen Exam: soft, normal bowel sounds, No tenderness Back Exam: normal inspection, normal range of motion, No CVA tenderness Extremity Exam: normal inspection, normal range of motion, pelvis stable Neurologic Exam: alert, oriented x 3, cooperative, line cleaner II-XII nml as tested, normal mood/affect, nml cerebellar function, sensation nml, No motor deficits Skin Exam: normal color SpO2 Interpretation: normal SpO2: 96 O2 Delivery: Room Air Ordered Tests: Medication Summary Discontinued Medications Generic Name Dose Route Start Last Admin Trade Name Patti PRN Reason Stop Dose Admin Acetaminophen 975 mg 12/05/22 10:14 12/05/22 10:33 Acetaminophen 325 Mg Tablet PO 12/05/22 10:15 975 mg STAT ONE Administration Acetaminophen Confirm 12/05/22 10:31 Acetaminophen 325 Mg Tablet Administered 12/05/22 10:32 Dose 975 mg .ROUTE .STK-MED ONE Acetaminophen 650 mg 12/05/22 15:54 12/07/22 02:38 Acetaminophen 325 Mg Tablet PO 01/04/23 15:53 650 mg Q4H PRN PRN Administration PAIN AND/OR FEVER Albuterol/Ipratropium 3 ml 12/05/22 15:54 Ipratropium/Albuterol Sulfate 3 Ml Ampul.Neb IH 01/04/23 15:53 Q4HPRN PRN SHORTNESS OF BREATH/WHEEZING Sodium Chloride 1,000 mls @ 999 mls/hr 12/05/22 10:14 12/05/22 11:40 Sodium Chloride 0.9% 1000 Ml IV 12/05/22 11:14 Infused .Q1H1M STA Infusion Sodium Chloride Confirm 12/05/22 10:32 Sodium Chloride 0.9% 1000 Ml Administered 12/05/22 10:33 Dose 1,000 mls @ ud .ROUTE .STK-MED ONE Clindamycin HCl/Dextrose 600 mg in 50 mls @ 100 mls/hr 12/05/22 14:29 12/05/22 15:08 Clindamycin-D5w 600 Mg/50 Ml IV 12/05/22 14:58 Infused STAT STA Infusion Clindamycin HCl/Dextrose Confirm 12/05/22 14:37 Clindamycin-D5w 600 Mg/50 Ml Administered 12/05/22 14:38 Dose 600 mg in 50 mls @ ud IV .STK-MED ONE Ceftriaxone Sodium/Dextrose 2 g in 50 mls @ 100 mls/hr 12/05/22 14:39 12/05/22 15:39 Rocephin 2 Gm-D5w 50ml Bag IV 12/05/22 15:08 Infused STAT STA Infusion Ceftriaxone Sodium/Dextrose Confirm 12/05/22 15:06 Rocephin 2 Gm-D5w 50ml Bag Administered 12/05/22 15:07 Dose 2 g in 50 mls @ ud IV .STK-MED ONE Sodium Chloride 1,000 mls @ 125 mls/hr 12/05/22 15:54 12/07/22 02:35 Sodium Chloride 0.9% 1000 Ml IV 01/04/23 15:53 125 mls/hr .Q8H BAY Administration Clindamycin HCl/Dextrose 600 mg in 50 mls @ 100 mls/hr 12/05/22 22:00 06/19/23 14:50 Clindamycin-D5w 600 Mg/50 Ml IV 01/04/23 21:59 100 mls/hr Q8HT BAY Administration Ceftriaxone Sodium/Dextrose 2 g in 50 mls @ 100 mls/hr 12/06/22 10:00 12/07/22 08:58 Rocephin 2 Gm-D5w 50ml Bag IV 12/09/22 09:59 100 mls/hr Q24H10 BAY Administration Ibuprofen 600 mg 12/05/22 18:53 12/06/22 16:59 Ibuprofen 600 Mg Tablet PO 01/04/23 18:52 600 mg Q6HPRN PRN Administration PAIN AND/OR FEVER Lactobacillus Acidophilus 1 tab 12/05/22 20:00 12/07/22 08:57 Lactobacillus Acidophilus 1 Tab Tablet PO 01/04/23 19:59 1 tab DAILY BAY Administration Morphine Sulfate 2 mg 12/05/22 10:14 12/05/22 10:33 Morphine Sulfate 2 Mg/Ml Inj IV 12/05/22 10:15 2 mg STAT ONE Administration Morphine Sulfate Confirm 12/05/22 10:31 Morphine Sulfate 2 Mg/Ml Inj Administered 12/05/22 10:32 Dose 2 mg .ROUTE .STK-MED ONE Morphine Sulfate 4 mg 12/05/22 11:13 12/05/22 12:40 Morphine Sulfate 4 Mg/Ml Injection IV 12/05/22 11:14 Not Given STAT ONE Morphine Sulfate 2 mg 12/05/22 15:54 Morphine Sulfate 2 Mg/Ml Inj IV 12/10/22 15:53 Q4H PRN PRN PAIN Ondansetron HCl 4 mg 12/05/22 10:14 12/05/22 10:33 Ondansetron Hcl 4 Mg/2 Ml Vial IV 12/05/22 10:15 4 mg STAT ONE Administration Ondansetron HCl Confirm 12/05/22 10:31 Ondansetron Hcl 4 Mg/2 Ml Vial Administered 12/05/22 10:32 Dose 4 mg .ROUTE .STK-MED ONE Ondansetron HCl 4 mg 12/05/22 15:54 Ondansetron Hcl 4 Mg/2 Ml Vial IV 01/04/23 15:53 Q6H PRN PRN NAUSEA/VOMITING Pantoprazole Sodium 40 mg 12/06/22 10:00 Pantoprazole 40 Mg Vial IV 01/05/23 09:59 Q24H10 BAY Pantoprazole Sodium 40 mg 12/05/22 17:00 12/07/22 08:58 Pantoprazole 40 Mg Vial IV 01/04/23 16:59 40 mg Q24H10 BAY Administration Lab/Rad Data: Laboratory Result Diagrams 12/05/22 10:30 12/05/22 10:30 Laboratory Results 12/05/22 12/05/22 12/05/22 Range/Units 13:44 11:56 10:45 WBC (4.0-10.5) x10^3/uL RBC (4.1-5.4) x10^6/uL Hgb (12.0-16.0) g/dL Hct (35-47) % MCV (78-100) fL MCH (26-32) pg MCHC (32-36) g/dL RDW (11.5-14.0) % Plt Count (150-450) x10^3/uL MPV (7.5-11.0) fL Gran % (36.0-66.0) % Immature Gran % (Auto) (0.00-0.4) % Nucleat RBC Rel Count (0.00-0.1) % Eos # (Auto) (0-0.5) x10^3/uL Immature Gran # (Auto) (0.00-0.03) x10^3u/L Absolute Lymphs (auto) (1.0-4.6) x10^3/uL Absolute Monos (auto) (0.0-1.3) x10^3/uL Absolute Nucleated RBC (0.00-0.01) x10^3u/L Lymphocytes % (24.0-44.0) % Monocytes % (0.0-12.0) % Eosinophils % (0.00-5.0) % Basophils % (0.0-0.4) % Absolute Granulocytes (1.4-6.9) x10^3/uL Basophils # (0-0.4) x10^3/uL Sodium (137-145) mmol/L Potassium (3.5-5.1) mmol/L Chloride (98-107) mmol/L Carbon Dioxide (22-30) mmol/L Anion Gap (5-15) MEQ/L BUN (7-17) mg/dL Creatinine (0.52-1.04) mg/dL Estimated GFR ML/MIN Glucose (74-106) mg/dL Lactic Acid (0.4-2.0) Calcium (8.4-10.2) mg/dL Total Bilirubin (0.2-1.3) mg/dL AST (14-36) U/L ALT (0-35) U/L Alkaline Phosphatase (38-126) U/L Serum Total Protein (6.3-8.2) g/dL Albumin (3.5-5.0) g/dL Lipase (23-300) U/L Procalcitonin (0.030-0.080) ng/mL Serum HCG, Qual (NEGATIVE) Urine Color Yellow (Yellow) Urine Appearance Clear (Clear) Urine pH 6.0 (4.6-8.0) Ur Specific [place] 1.020 (1.005-1.030) Urine Protein 300 A (Negative) Urine Glucose (UA) Negative (Negative) mg/dL Urine Ketones 15 A (Negative) Urine Blood Large A (Negative) Urine Nitrite Negative (Negative) Urine Bilirubin Negative (Negative) Urine Urobilinogen 1.0 A (0.2) mg/dL Ur Leukocyte Esterase Trace A (Negative) U Hyaline Cast (Auto) NONE SEEN (0-2) /LPF Urine Microscopic RBC 51-100 A (0-5) /HPF Urine Microscopic WBC 6-10 A (0-5) /HPF Ur Epithelial Cells Few (None Seen) /HPF Urine Bacteria None Seen (None Seen) /HPF Urine Culture Reflexed YES (NO) Influenza Type A Ag NEGATIVE (NEGATIVE) Influenza Type B Ag NEGATIVE (NEGATIVE) RSV (PCR) NEGATIVE (NEGATIVE) SARS-CoV-2 (PCR) NEGATIVE (NEGATIVE) Group A Strep Antibody DETECTED (NEGATIVE) 12/05/22 12/05/22 12/05/22 Range/Units 10:30 10:30 10:30 WBC (4.0-10.5) x10^3/uL RBC (4.1-5.4) x10^6/uL Hgb (12.0-16.0) g/dL Hct (35-47) % MCV (78-100) fL MCH (26-32) pg MCHC (32-36) g/dL RDW (11.5-14.0) % Plt Count (150-450) x10^3/uL MPV (7.5-11.0) fL Gran % (36.0-66.0) % Immature Gran % (Auto) (0.00-0.4) % Nucleat RBC Rel Count (0.00-0.1) % Eos # (Auto) (0-0.5) x10^3/uL Immature Gran # (Auto) (0.00-0.03) x10^3u/L Absolute Lymphs (auto) (1.0-4.6) x10^3/uL Absolute Monos (auto) (0.0-1.3) x10^3/uL Absolute Nucleated RBC (0.00-0.01) x10^3u/L Lymphocytes % (24.0-44.0) % Monocytes % (0.0-12.0) % Eosinophils % (0.00-5.0) % Basophils % (0.0-0.4) % Absolute Granulocytes (1.4-6.9) x10^3/uL Basophils # (0-0.4) x10^3/uL Sodium 134 L (137-145) mmol/L Potassium 3.6 (3.5-5.1) mmol/L Chloride 95 L (98-107) mmol/L Carbon Dioxide 24 (22-30) mmol/L Anion Gap 17.3 H (5-15) MEQ/L BUN 15 (7-17) mg/dL Creatinine 0.79 (0.52-1.04) mg/dL Estimated GFR > 60.0 ML/MIN Glucose 129 H (74-106) mg/dL Lactic Acid (0.4-2.0) Calcium 8.3 L (8.4-10.2) mg/dL Total Bilirubin 0.70 (0.2-1.3) mg/dL AST 26 (14-36) U/L ALT 30 (0-35) U/L Alkaline Phosphatase 128 H (38-126) U/L Serum Total Protein 7.9 (6.3-8.2) g/dL Albumin 4.0 (3.5-5.0) g/dL Lipase 72 (23-300) U/L Procalcitonin 0.245 H (0.030-0.080) ng/mL Serum HCG, Qual NEGATIVE (NEGATIVE) Urine Color (Yellow) Urine Appearance (Clear) Urine pH (4.6-8.0) Ur Specific [place] (1.005-1.030) Urine Protein (Negative) Urine Glucose (UA) (Negative) mg/dL Urine Ketones (Negative) Urine Blood (Negative) Urine Nitrite (Negative) Urine Bilirubin (Negative) Urine Urobilinogen (0.2) mg/dL Ur Leukocyte Esterase (Negative) U Hyaline Cast (Auto) (0-2) /LPF Urine Microscopic RBC (0-5) /HPF Urine Microscopic WBC (0-5) /HPF Ur Epithelial Cells (None Seen) /HPF Urine Bacteria (None Seen) /HPF Urine Culture Reflexed (NO) Influenza Type A Ag (NEGATIVE) Influenza Type B Ag (NEGATIVE) RSV (PCR) (NEGATIVE) SARS-CoV-2 (PCR) (NEGATIVE) Group A Strep Antibody (NEGATIVE) 12/05/22 12/05/22 Range/Units 10:30 10:30 WBC 19.7 H (4.0-10.5) x10^3/uL RBC 4.67 (4.1-5.4) x10^6/uL Hgb 14.0 (12.0-16.0) g/dL Hct 42.0 (35-47) % MCV 89.9 (78-100) fL MCH 30.0 (26-32) pg MCHC 33.3 (32-36) g/dL RDW 12.5 (11.5-14.0) % Plt Count 259 (150-450) x10^3/uL MPV 9.1 (7.5-11.0) fL Gran % 90.9 H (36.0-66.0) % Immature Gran % (Auto) 0.8 H (0.00-0.4) % Nucleat RBC Rel Count 0.0 (0.00-0.1) % Eos # (Auto) 0.01 (0-0.5) x10^3/uL Immature Gran # (Auto) 0.16 H (0.00-0.03) x10^3u/L Absolute Lymphs (auto) 0.75 L (1.0-4.6) x10^3/uL Absolute Monos (auto) 0.82 (0.0-1.3) x10^3/uL Absolute Nucleated RBC 0.00 (0.00-0.01) x10^3u/L Lymphocytes % 3.8 L (24.0-44.0) % Monocytes % 4.2 (0.0-12.0) % Eosinophils % 0.1 (0.00-5.0) % Basophils % 0.2 (0.0-0.4) % Absolute Granulocytes 17.90 H (1.4-6.9) x10^3/uL Basophils # 0.03 (0-0.4) x10^3/uL Sodium (137-145) mmol/L Potassium (3.5-5.1) mmol/L Chloride (98-107) mmol/L Carbon Dioxide (22-30) mmol/L Anion Gap (5-15) MEQ/L BUN (7-17) mg/dL Creatinine (0.52-1.04) mg/dL Estimated GFR ML/MIN Glucose (74-106) mg/dL Lactic Acid 1.3 (0.4-2.0) Calcium (8.4-10.2) mg/dL Total Bilirubin (0.2-1.3) mg/dL AST (14-36) U/L ALT (0-35) U/L Alkaline Phosphatase (38-126) U/L Serum Total Protein (6.3-8.2) g/dL Albumin (3.5-5.0) g/dL Lipase (23-300) U/L Procalcitonin (0.030-0.080) ng/mL Serum HCG, Qual (NEGATIVE) Urine Color (Yellow) Urine Appearance (Clear) Urine pH (4.6-8.0) Ur Specific [place] (1.005-1.030) Urine Protein (Negative) Urine Glucose (UA) (Negative) mg/dL Urine Ketones (Negative) Urine Blood (Negative) Urine Nitrite (Negative) Urine Bilirubin (Negative) Urine Urobilinogen (0.2) mg/dL Ur Leukocyte Esterase (Negative) U Hyaline Cast (Auto) (0-2) /LPF Urine Microscopic RBC (0-5) /HPF Urine Microscopic WBC (0-5) /HPF Ur Epithelial Cells (None Seen) /HPF Urine Bacteria (None Seen) /HPF Urine Culture Reflexed (NO) Influenza Type A Ag (NEGATIVE) Influenza Type B Ag (NEGATIVE) RSV (PCR) (NEGATIVE) SARS-CoV-2 (PCR) (NEGATIVE) Group A Strep Antibody (NEGATIVE) - Progress Progress: improved, re-examined Progress Note: 12/05/22 13:15 32 years old female presented in the ER with chief complaint of multiple episodes of nonprojectile, nonbilious vomiting since yesterday, not able to hold much down, feels weak fatigued tired and dehydrated. Also reports subjective feeling of fever and chills with frontal headache. No difficulty movements of neck. No visual disturbance. Denies any cough or difficulty breathing. She has no diarrhea and no abdominal pain. Did notice some blood in the urine earlier. reported patient has been sleeping all day long yesterday. She is complaining of aches and pains all over. Denies any sick contact. Given fluids and symptomatic treatment, on reevaluation she is feeling much better. Patient had a temperature of 1-2.5 on presentation and improved to 99 on reeval. Work-up showed white count of 19, chemistries showed finding consistent with dehydration. Has normal lactate, elevated procalcitonin 1.24. No obvious focus of infection other than pharyngitis. No signs of meningismus. 12/05/22 15:[address] head which is negative for any acute intracranial findings. CT abdomen pelvis is negative as well. Chest x-ray is negative for any acute cardiopulmonary findings reviewed by me, official report is pending. Patient has a positive strep. She has a midline uvula and no deviation. Airway well intact. No signs of compromise. No neck swelling. No swelling floor of mouth. She is started on clindamycin and given a dose of Rocephin as well. Patient I believe having strep associated sepsis and darkening her urine is secondary to possible acute glomerulonephritis and also having protein in the urine. Discussed with Dr. Macdonald, reviewed history, work-up, agreed with admission. I have discussed results of work-up including labs and imaging with patient and in detail and admission with IV antibiotics and further work-up which they understand and agree with it. Discussed with : Other Will see patient in: hospital (observation) Counseled pt/family regarding: lab results, diagnosis, rad results Medical Desision Making - Independent Historian Additional History obtained from: Spouse - Discussion of managment Care discussed with:: hospitalist (Dr. [id number]) Reviewed:: Test results Agreed on:: Treatment plan, place in obs Will see patient: in hospital - Diagnostic Testing Radiological Interpretation: Interpreted by me, Reviewed by me, Teleradiologist Report - Risk of complications The pt has a high risk of morbidity or mortality based on: Decision regarding hospitilization or escalation of hosp level of care - Departure Departure Disposition: Observation Clinical Impression: Acute streptococcal pharyngitis, Sepsis, Dehydration, Nausea & vomiting Condition: Stable Critical Care Time: No
--- NOTE | 2022-12-05 13:34 | XRAY ---
CLINICAL HISTORY:Vomiting. COMPARISON:None. TECHNIQUES:Spiral axial continuous cuts were taken through the abdomen and pelvis with multiplanar reformatting and without contrast administration. FINDINGS: Both kidneys are of normal size and shape with no stones or back pressure changes. Normal course and caliber of both ureters with no evidence of stones or mural abnormalities. Normal filling of the urinary bladder with no stones, masses, or diverticula. Normal CT appearance of the liver, pancreas, spleen, adrenal glands, and great vessels on a non-contrast basis. No significant lymph pallavi enlargement or ascetic fluid collection. The uterus and ischiorectal fossae show normal CT appearance. Small bilateral ovarian cysts measuring about 29 X 20 mm in the right ovary and 16 X 16 mm in the left ovary, likely functional. Small umbilical hernia containing fat. Bone window images show sclerotic changes at the sacroiliac joints. Lower chest cuts are unremarkable apart from mild bilateral basal subpleural atelectatic/dependency changes. IMPRESSION: 1. No evidence of urolithiasis. 2. Small bilateral ovarian cysts, likely functional. 3. Small umbilical hernia containing fat. 4. 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 5. No acute intra-abdominal abnormality. Electronically Signed by: Jaky Espinoza MD. (12/05/2022 12:30:35 [employer])
[2022-12-05] MEDS ORDERED: CLINDAMYCIN-D5W 600 MG/50 ML*** 600 MG/50 ML BAG IV STA (14:29)
[2022-12-05] MEDS ORDERED: CLINDAMYCIN-D5W 600 MG/50 ML*** 600 MG/50 ML BAG IV ONE (14:37)
[2022-12-05] MEDS ORDERED: ROCEPHIN 2 Gm-D5w 50ML BAG** 2 G/50 ML IVPB IV STA (14:39)
[2022-12-05] MEDS ORDERED: ROCEPHIN 2 Gm-D5w 50ML BAG** 2 G/50 ML IVPB IV ONE (15:06)
[2022-12-05] MEDS ORDERED: MORPHINE SULFATE 2 MG INJ IV PRN (15:54)
[2022-12-05] MEDS ORDERED: Zofran 4 MG/2 ML VIAL IV PRN (15:54)
[2022-12-05] MEDS ORDERED: DUONEB 0.5-3 MG/3 ml Neb IH PRN (15:54)
[2022-12-05] MEDS: TYLENOL 325 MG PO PRN (17:10)
[2022-12-05] MEDS: PROTONIX 40 MG IV IV SCH (17:13)
--- NOTE | 2022-12-05 17:57 | PCM.HP ---
History of Present Illness - Chief Complaint Chief Complaint: Sepsis/acute pharyngitis/nausea vomiting/dehydration Date: 12/05/22 History of Present Illness: is a 32 year old female who presented to the ED with several episodes of nonprojectile, nonbilious nonbloody vomiting since yesterday, and diffuse body aches. Since then, she has felt fatigue, fevers and chills. She has had a frontal headache but no neck stiffness, or blurry vision. She also has den ied cough, diarrhea, abdominal pain or dysuria. The patient was seen and examined via telemedicine. The entirety of this encounter was performed via telemedicine. The patient consented to this telem edicine encounter. - Review of Systems Constitutional: Fever, Chills, Fatigue, Malaise Eyes: No Symptoms Ears, Nose, & Throat: No Symptoms Respiratory: No Symptoms Cardiac: No Symptoms Abdominal/Gastrointestinal: Nausea, Vomiting Genitourinary Symptoms: No Symptoms Musculoskeletal: Arthralgias, Myalgias Skin: No Symptoms Neurological: No Symptoms Psychological: No Symptoms Endocrine: No Symptoms Hematologic/Lymphatic: No Symptoms Immunological/Allergic: No Symptoms Medications & Allergies Home Medications: Home Medication List No Reportable Medications [No Reported Medications] 12/05/22 [History Confirmed 12/05/22] Allergies/Adverse Reactions: Allergies Allergy/AdvReac Type Severity Reaction Status Date / Time Sulfa (Sulfonamide Allergy Mild Verified 12/05/22 12:11 Antibiotics) - Past Medical History Past Medical History: No Neurological History: No Pertinent History ENT History: No Pertinent History Cardiac History: No Pertinent History Respiratory History: No Pertinent History Endocrine Medical History: No Pertinent History Musculoskelatal History: No Pertinent History GI Medical History: No Pertinent History History: No Pertinent History Pyscho-Social History: No Pertinent History Reproductive Disorders: No Pertinent History - Female History Are you now?: No - Past Surgical History Past Surgical History: Yes (tubes in ears) Neuro Surgical History: No Pertinent History Cardiac History: No Pertinent History Respiratory Surgery: No Pertinent History GI Surgical History: No Pertinent History Genitourinary Surgical Hx: No Pertinent History Musculskeletal Surgical Hx: No Pertinent History Female Surgical History: Section Other Surgical History: 2020 and 2022 - Social History Smoking Status: Never smoker Exposure to second hand smoke: No Alcohol: Rarely Drug Use: none - Physical Exam Vital Signs: Vital Signs - 24 hr Temp Pulse Resp BP Pulse Ox 12/05/22 17:16 98.1 F 88 18 129/82 96 12/05/22 16:11 98.1 F 88 18 129/82 96 12/05/22 16:00 98.1 F 88 18 129/82 96 12/05/22 15:05 96 12/05/22 15:00 90 16 110/58 95 12/05/22 14:00 98.8 F 88 18 108/56 94 L 12/05/22 11:45 90 18 110/60 96 12/05/22 10:45 99.0 F 107 H 18 117/66 96 12/05/22 09:45 100.5 F 83 18 115/74 94 L General Appearance: mild distress Neurologic Exam: alert, oriented x 3, cooperative, 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 tested, normal mood/affect, nml cerebellar function Eye Exam: PERRL/EOMI, eyes nml inspection Ears, Nose, Throat Exam: pharyngeal erythema Neck Exam: normal inspection, non-tender, supple, full range of motion Respiratory Exam: normal breath sounds, lungs clear Cardiovascular Exam: regular rate/rhythm, normal heart sounds Gastrointestinal/Abdomen Exam: soft, normal bowel sounds Back Exam: normal range of motion Extremity Exam: normal inspection, normal range of motion Skin Exam: normal color Results - Labs Lab/Micro Results: Lab Results-Last 24 Hours 12/05/22 12/05/22 12/05/22 Range/Units 10:30 10:30 10:30 WBC 19.7 H (4.0-10.5) x10^3/uL RBC 4.67 (4.1-5.4) x10^6/uL Hgb 14.0 (12.0-16.0) g/dL Hct 42.0 (35-47) % MCV 89.9 (78-100) fL MCH 30.0 (26-32) pg MCHC 33.3 (32-36) g/dL RDW 12.5 (11.5-14.0) % Plt Count 259 (150-450) x10^3/uL MPV 9.1 (7.5-11.0) fL Gran % 90.9 H (36.0-66.0) % Immature Gran % (Auto) 0.8 H (0.00-0.4) % Nucleat RBC Rel Count 0.0 (0.00-0.1) % Eos # (Auto) 0.01 (0-0.5) x10^3/uL Immature Gran # (Auto) 0.16 H (0.00-0.03) x10^3u/L Absolute Lymphs (auto) 0.75 L (1.0-4.6) x10^3/uL Absolute Monos (auto) 0.82 (0.0-1.3) x10^3/uL Absolute Nucleated RBC 0.00 (0.00-0.01) x10^3u/L Lymphocytes % 3.8 L (24.0-44.0) % Monocytes % 4.2 (0.0-12.0) % Eosinophils % 0.1 (0.00-5.0) % Basophils % 0.2 (0.0-0.4) % Absolute Granulocytes 17.90 H (1.4-6.9) x10^3/uL Basophils # 0.03 (0-0.4) x10^3/uL Sodium 134 L (137-145) mmol/L Potassium 3.6 (3.5-5.1) mmol/L Chloride 95 L (98-107) mmol/L Carbon Dioxide 24 (22-30) mmol/L Anion Gap 17.3 H (5-15) MEQ/L BUN 15 (7-17) mg/dL Creatinine 0.79 (0.52-1.04) mg/dL Estimated GFR > 60.0 ML/MIN Glucose 129 H (74-106) mg/dL Lactic Acid 1.3 (0.4-2.0) Calcium 8.3 L (8.4-10.2) mg/dL Total Bilirubin 0.70 (0.2-1.3) mg/dL AST 26 (14-36) U/L ALT 30 (0-35) U/L Alkaline Phosphatase 128 H (38-126) U/L Serum Total Protein 7.9 (6.3-8.2) g/dL Albumin 4.0 (3.5-5.0) g/dL Lipase 72 (23-300) U/L Procalcitonin (0.030-0.080) ng/mL Serum HCG, Qual (NEGATIVE) Urine Color (Yellow) Urine Appearance (Clear) Urine pH (4.6-8.0) Ur Specific [place] (1.005-1.030) Urine Protein (Negative) Urine Glucose (UA) (Negative) mg/dL Urine Ketones (Negative) Urine Blood (Negative) Urine Nitrite (Negative) Urine Bilirubin (Negative) Urine Urobilinogen (0.2) mg/dL Ur Leukocyte Esterase (Negative) U Hyaline Cast (Auto) (0-2) /LPF Urine Microscopic RBC (0-5) /HPF Urine Microscopic WBC (0-5) /HPF Ur Epithelial Cells (None Seen) /HPF Urine Bacteria (None Seen) /HPF Urine Culture Reflexed (NO) Influenza Type A Ag (NEGATIVE) Influenza Type B Ag (NEGATIVE) RSV (PCR) (NEGATIVE) SARS-CoV-2 (PCR) (NEGATIVE) Group A Strep Antibody (NEGATIVE) 12/05/22 12/05/22 12/05/22 Range/Units 10:30 10:30 10:45 WBC (4.0-10.5) x10^3/uL RBC (4.1-5.4) x10^6/uL Hgb (12.0-16.0) g/dL Hct (35-47) % MCV (78-100) fL MCH (26-32) pg MCHC (32-36) g/dL RDW (11.5-14.0) % Plt Count (150-450) x10^3/uL MPV (7.5-11.0) fL Gran % (36.0-66.0) % Immature Gran % (Auto) (0.00-0.4) % Nucleat RBC Rel Count (0.00-0.1) % Eos # (Auto) (0-0.5) x10^3/uL Immature Gran # (Auto) (0.00-0.03) x10^3u/L Absolute Lymphs (auto) (1.0-4.6) x10^3/uL Absolute Monos (auto) (0.0-1.3) x10^3/uL Absolute Nucleated RBC (0.00-0.01) x10^3u/L Lymphocytes % (24.0-44.0) % Monocytes % (0.0-12.0) % Eosinophils % (0.00-5.0) % Basophils % (0.0-0.4) % Absolute Granulocytes (1.4-6.9) x10^3/uL Basophils # (0-0.4) x10^3/uL Sodium (137-145) mmol/L Potassium (3.5-5.1) mmol/L Chloride (98-107) mmol/L Carbon Dioxide (22-30) mmol/L Anion Gap (5-15) MEQ/L BUN (7-17) mg/dL Creatinine (0.52-1.04) mg/dL Estimated GFR ML/MIN Glucose (74-106) mg/dL Lactic Acid (0.4-2.0) Calcium (8.4-10.2) mg/dL Total Bilirubin (0.2-1.3) mg/dL AST (14-36) U/L ALT (0-35) U/L Alkaline Phosphatase (38-126) U/L Serum Total Protein (6.3-8.2) g/dL Albumin (3.5-5.0) g/dL Lipase (23-300) U/L Procalcitonin 0.245 H (0.030-0.080) ng/mL Serum HCG, Qual NEGATIVE (NEGATIVE) Urine Color (Yellow) Urine Appearance (Clear) Urine pH (4.6-8.0) Ur Specific [place] (1.005-1.030) Urine Protein (Negative) Urine Glucose (UA) (Negative) mg/dL Urine Ketones (Negative) Urine Blood (Negative) Urine Nitrite (Negative) Urine Bilirubin (Negative) Urine Urobilinogen (0.2) mg/dL Ur Leukocyte Esterase (Negative) U Hyaline Cast (Auto) (0-2) /LPF Urine Microscopic RBC (0-5) /HPF Urine Microscopic WBC (0-5) /HPF Ur Epithelial Cells (None Seen) /HPF Urine Bacteria (None Seen) /HPF Urine Culture Reflexed (NO) Influenza Type A Ag NEGATIVE (NEGATIVE) Influenza Type B Ag NEGATIVE (NEGATIVE) RSV (PCR) NEGATIVE (NEGATIVE) SARS-CoV-2 (PCR) NEGATIVE (NEGATIVE) Group A Strep Antibody (NEGATIVE) 12/05/22 12/05/22 Range/Units 11:56 13:44 WBC (4.0-10.5) x10^3/uL RBC (4.1-5.4) x10^6/uL Hgb (12.0-16.0) g/dL Hct (35-47) % MCV (78-100) fL MCH (26-32) pg MCHC (32-36) g/dL RDW (11.5-14.0) % Plt Count (150-450) x10^3/uL MPV (7.5-11.0) fL Gran % (36.0-66.0) % Immature Gran % (Auto) (0.00-0.4) % Nucleat RBC Rel Count (0.00-0.1) % Eos # (Auto) (0-0.5) x10^3/uL Immature Gran # (Auto) (0.00-0.03) x10^3u/L Absolute Lymphs (auto) (1.0-4.6) x10^3/uL Absolute Monos (auto) (0.0-1.3) x10^3/uL Absolute Nucleated RBC (0.00-0.01) x10^3u/L Lymphocytes % (24.0-44.0) % Monocytes % (0.0-12.0) % Eosinophils % (0.00-5.0) % Basophils % (0.0-0.4) % Absolute Granulocytes (1.4-6.9) x10^3/uL Basophils # (0-0.4) x10^3/uL Sodium (137-145) mmol/L Potassium (3.5-5.1) mmol/L Chloride (98-107) mmol/L Carbon Dioxide (22-30) mmol/L Anion Gap (5-15) MEQ/L BUN (7-17) mg/dL Creatinine (0.52-1.04) mg/dL Estimated GFR ML/MIN Glucose (74-106) mg/dL Lactic Acid (0.4-2.0) Calcium (8.4-10.2) mg/dL Total Bilirubin (0.2-1.3) mg/dL AST (14-36) U/L ALT (0-35) U/L Alkaline Phosphatase (38-126) U/L Serum Total Protein (6.3-8.2) g/dL Albumin (3.5-5.0) g/dL Lipase (23-300) U/L Procalcitonin (0.030-0.080) ng/mL Serum HCG, Qual (NEGATIVE) Urine Color Yellow (Yellow) Urine Appearance Clear (Clear) Urine pH 6.0 (4.6-8.0) Ur Specific [place] 1.020 (1.005-1.030) Urine Protein 300 A (Negative) Urine Glucose (UA) Negative (Negative) mg/dL Urine Ketones 15 A (Negative) Urine Blood Large A (Negative) Urine Nitrite Negative (Negative) Urine Bilirubin Negative (Negative) Urine Urobilinogen 1.0 A (0.2) mg/dL Ur Leukocyte Esterase Trace A (Negative) U Hyaline Cast (Auto) NONE SEEN (0-2) /LPF Urine Microscopic RBC 51-100 A (0-5) /HPF Urine Microscopic WBC 6-10 A (0-5) /HPF Ur Epithelial Cells Few (None Seen) /HPF Urine Bacteria None Seen (None Seen) /HPF Urine Culture Reflexed YES (NO) Influenza Type A Ag (NEGATIVE) Influenza Type B Ag (NEGATIVE) RSV (PCR) (NEGATIVE) SARS-CoV-2 (PCR) (NEGATIVE) Group A Strep Antibody DETECTED (NEGATIVE) - Radiology Impressions Radiology Exams & Impressions: Radiology Procedures Category Date Time Status ABDOMEN AND PELVIS W/0 CONTRAS [CT] Stat Exams 12/05/22 11:07 Completed CHEST 1 VIEW (PORTABLE) Stat Exams 12/05/22 13:40 Taken HEAD WITHOUT CONTRAST [CT] Stat Exams 12/05/22 11:06 Completed Assessment/Plan (1) UTI (urinary tract infection) Current Visit: Yes Status: Acute Assessment & Plan: IV Antibiotics. Follow culture results. Proteinuria noted. Urinalysis will need to be repeated in a few days during PCP follow up to rule out glomerulonephritis. Code(s): N39.0 - URINARY TRACT INFECTION, SITE NOT SPECIFIED (2) Acute streptococcal pharyngitis Current Visit: Yes Status: Acute Assessment & Plan: Continue antibiotics and follow clinical course. Code(s): J02.0 - STREPTOCOCCAL PHARYNGITIS (3) Sepsis Current Visit: Yes Status: Acute Assessment & Plan: Sepsis as a result of acute pharyngitis and urinary tract infection (present on admission). IV fluids for dehydration. Antiemetics prn. Telemedicine Encounter - Telemedicine Encounter Telemedicine Encounter: The entirety of this encounter was performed via Telemedicine"
--- NOTE | 2022-12-05 19:14 | XRAY ---
Indication: Fever. Comparison: July 27, 2022 Portable chest again demonstrates normal heart, lungs, and bony thorax.
[2022-12-05] MEDS: Acidophilus TABLET PO SCH (19:44)
[2022-12-05] MEDS: MOTRIN 600 MG PO PRN (19:44)
[2022-12-05] MEDS: CLINDAMYCIN-D5W 600 MG/50 ML*** 600 MG/50 ML BAG IV SCH (21:54)
[2022-12-05] MEDS: Sodium Chloride 0.9% 1000 ML 1,000 ML IV SCH (23:43)
[2022-12-06] MEDS: TYLENOL 325 MG PO PRN ×2 (03:46→16:59)
[2022-12-06] MEDS: CLINDAMYCIN-D5W 600 MG/50 ML*** 600 MG/50 ML BAG IV SCH ×2 (05:10→14:50)
[2022-12-06] MEDS: MOTRIN 600 MG PO PRN ×3 (05:12→16:59)
[2022-12-06 05:34] LABS: Absolute Neutrophil Ct (ANC) 11.21 x10^3/uL (1.4-6.9); BASOPHIL % 0.2 % (0.0-0.4); Basophil (Absolute #) 0.03 x10^3/uL (0-0.4); Eosinophil % 0.1 % (0.00-5.0); Eosinophil (Absolute #) 0.02 x10^3/uL (0-0.5); Hematocrit 35.8 % (35-47); Hemoglobin 11.7 g/dL (12.0-16.0); IMMATURE GRAN # 0.06 x10^3u/L (0.00-0.03); IMMATURE GRAN % 0.4 % (0.00-0.4); Lymphocyte (Absolute #) 1.19 x10^3/uL (1.0-4.6); Lymphocytes % 8.8 % (24.0-44.0); Mean Corpuscular Hemoglobin 30.1 pg (26-32); Mean Corpuscular Hgb Concent. 32.7 g/dL (32-36); Mean Platelet Volume 9.5 fL (7.5-11.0); Monocyte (Absolute #) 1.06 x10^3/uL (0.0-1.3); Monocytes % 7.8 % (0.0-12.0); Neutrophil % 82.7 % (36.0-66.0); Platelet Count 234 x10^3/uL (150-450); Red Blood Count 3.89 x10^6/uL (4.1-5.4); Red Cell Distribution Width 13.2 % (11.5-14.0); White Blood Count 13.6 x10^3/uL (4.0-10.5)
[2022-12-06 05:57] LABS: ALBUMIN 3.2 g/dL (3.5-5.0); ALKALINE PHOSPHATASE 103 U/L (38-126); ANION GAP 13.2 MEQ/L (5-15); BLOOD UREA NITROGEN 19 mg/dL (7-17); CHLORIDE 104 mmol/L (98-107); Carbon Dioxide 25 mmol/L (22-30); Creatinine 1 0.73 mg/dL (0.52-1.04); EST GLOMERULAR FILTRATION RATE > 60.0 ML/MIN; Glucose 95 mg/dL (74-106); Potassium 3.7 mmol/L (3.5-5.1); SGOT/AST 19 U/L (14-36); SGPT/ALT 23 U/L (0-35); SODIUM 138 mmol/L (137-145); Total Protein 6.5 g/dL (6.3-8.2)
[2022-12-06] MEDS: Sodium Chloride 0.9% 1000 ML 1,000 ML IV SCH ×3 (09:39→19:34)
[2022-12-06] MEDS: PROTONIX 40 MG IV IV SCH (09:39)
[2022-12-06] MEDS: Acidophilus TABLET PO SCH (09:39)
[2022-12-06] MEDS: ROCEPHIN 2 Gm-D5w 50ML BAG** 2 G/50 ML IVPB IV SCH (09:39)
[2022-12-06] MEDS ORDERED: PROTONIX 40 MG IV IV SCH (10:00)
--- NOTE | 2022-12-07 00:14 | PCM.NOTE ---
Date and Time: 12/06/22 1605 Subjective Assessment: No acute events overnight. Still has some non-productive cough, but throat pain is improving, and able to drink some soup for lunch. Able to walk to the bathroom. Has not used any morphine today. Denies dysuria. But still very weak overall. - Review of Systems Constitutional: Weakness, No Fever, No Night Sweats Respiratory: Cough, No Short Of Breath, No Wheezing Cardiac: No Symptoms Abdominal/Gastrointestinal: No Abdominal Pain, No Nausea, No Vomiting Genitourinary Symptoms: No Dysuria Objective Exam General Appearance: mild distress, alert Neurologic Exam: oriented x 3 Respiratory Exam: normal breath sounds, other (on room air), No accessory muscle use Cardiovascular Exam: regular rate/rhythm, normal heart sounds Gastrointestinal/Abdomen Exam: soft, No tenderness, No distention OBJECTIVE DATA Vital Signs: Vital Signs - 24 hr Temp Pulse Resp BP Pulse Ox 12/06/22 19:58 98.5 F 76 16 106/63 95 12/06/22 15:54 100.0 F 87 16 122/79 96 12/06/22 12:00 98.1 F 77 16 110/67 96 12/06/22 07:44 98.6 F 80 16 116/67 96 12/06/22 04:00 98.1 F 96 H 20 116/76 96 Pain Assessment - Last Documented Pain Intensity 1 Pain Scale Used 0-10 Pain Scale Intake and Output: Intake & Output 12/04/22 12/05/22 12/06/22 12/07/22 11:59 11:59 11:59 11:59 Intake Total 2082 120 Output Total 1250 Balance 832 120 Weight 79.379 kg 83.4 kg Lab Results: Lab Results-Last 24 Hours 12/06/22 12/06/22 Range/Units 04:50 04:50 WBC 13.6 H (4.0-10.5) x10^3/uL RBC 3.89 L (4.1-5.4) x10^6/uL Hgb 11.7 L (12.0-16.0) g/dL Hct 35.8 (35-47) % MCV 92.0 (78-100) fL MCH 30.1 (26-32) pg MCHC 32.7 (32-36) g/dL RDW 13.2 (11.5-14.0) % Plt Count 234 (150-450) x10^3/uL MPV 9.5 (7.5-11.0) fL Gran % 82.7 H (36.0-66.0) % Immature Gran % (Auto) 0.4 (0.00-0.4) % Nucleat RBC Rel Count 0.0 (0.00-0.1) % Eos # (Auto) 0.02 (0-0.5) x10^3/uL Immature Gran # (Auto) 0.06 H (0.00-0.03) x10^3u/L Absolute Lymphs (auto) 1.19 (1.0-4.6) x10^3/uL Absolute Monos (auto) 1.06 (0.0-1.3) x10^3/uL Absolute Nucleated RBC 0.00 (0.00-0.01) x10^3u/L Lymphocytes % 8.8 L (24.0-44.0) % Monocytes % 7.8 (0.0-12.0) % Eosinophils % 0.1 (0.00-5.0) % Basophils % 0.2 (0.0-0.4) % Absolute Granulocytes 11.21 H (1.4-6.9) x10^3/uL Basophils # 0.03 (0-0.4) x10^3/uL Sodium 138 (137-145) mmol/L Potassium 3.7 (3.5-5.1) mmol/L Chloride 104 (98-107) mmol/L Carbon Dioxide 25 (22-30) mmol/L Anion Gap 13.2 (5-15) MEQ/L BUN 19 H (7-17) mg/dL Creatinine 0.73 (0.52-1.04) mg/dL Estimated GFR > 60.0 ML/MIN Glucose 95 (74-106) mg/dL Calcium 8.0 L (8.4-10.2) mg/dL Total Bilirubin 0.40 (0.2-1.3) mg/dL AST 19 (14-36) U/L ALT 23 (0-35) U/L Alkaline Phosphatase 103 (38-126) U/L Serum Total Protein 6.5 (6.3-8.2) g/dL Albumin 3.2 L (3.5-5.0) g/dL Radiology Exams: Radiology Procedures Category Date Time Status ABDOMEN AND PELVIS W/0 CONTRAS [CT] Stat Exams 12/05/22 11:07 Completed CHEST 1 VIEW (PORTABLE) Stat Exams 12/05/22 13:40 Completed HEAD WITHOUT CONTRAST [CT] Stat Exams 12/05/22 11:06 Completed Assessment/Plan (1) Acute streptococcal pharyngitis Current Visit: Yes Status: Acute Assessment & Plan: 32 y/o no past medical history, here with acute strep pharyngitis. ## Acute strep pharyngitis - Positive strep swa. Improved pain, but still difficulty swallowing. WBC down 30 -> 14. - continue Rocephin - d/c clindamycin (no additional benefit for strep) - for home, plan 10 day course of Penicillin V 500 TID - PRN ibuprofen - continue NS @125 ml/hr for one more day until PO intake improves. ## Suspected acute cystitis - no dysuria, and urine culture with mixed nehemias, so unlikely to have UTI at this point. . Code status: Full code PPx: Ambulate Dispo: likely home tomorrow if PO intake improved. Entirety of encounter took place via telemedicine, to which patient consented. Code(s): J02.0 - STREPTOCOCCAL PHARYNGITIS
[2022-12-07] MEDS: Sodium Chloride 0.9% 1000 ML 1,000 ML IV SCH (02:35)
[2022-12-07] MEDS: TYLENOL 325 MG PO PRN (02:38)
[2022-12-07 05:08] LABS: Hematocrit 30.3 % (35-47); Hemoglobin 10.2 g/dL (12.0-16.0); Mean Cell Volume 90.2 fL (78-100); Mean Corpuscular Hemoglobin 30.4 pg (26-32); Mean Corpuscular Hgb Concent. 33.7 g/dL (32-36); Mean Platelet Volume 9.6 fL (7.5-11.0); Platelet Count 225 x10^3/uL (150-450); Red Blood Count 3.36 x10^6/uL (4.1-5.4); Red Cell Distribution Width 13.1 % (11.5-14.0); White Blood Count 7.4 x10^3/uL (4.0-10.5)
[2022-12-07 05:18] LABS: ANION GAP 14.1 MEQ/L (5-15); BLOOD UREA NITROGEN 12 mg/dL (7-17); CHLORIDE 105 mmol/L (98-107); Calcium 7.9 mg/dL (8.4-10.2); Carbon Dioxide 22 mmol/L (22-30); Creatinine 1 0.53 mg/dL (0.52-1.04); EST GLOMERULAR FILTRATION RATE > 60.0 ML/MIN; Glucose 90 mg/dL (74-106); Potassium 3.6 mmol/L (3.5-5.1); SODIUM 138 mmol/L (137-145)
[2022-12-07] MEDS: Acidophilus TABLET PO SCH (08:57)
[2022-12-07] MEDS: ROCEPHIN 2 Gm-D5w 50ML BAG** 2 G/50 ML IVPB IV SCH (08:58)
[2022-12-07] MEDS: PROTONIX 40 MG IV IV SCH (08:58)
--- NOTE | 2022-12-07 11:25 | PCM.DS ---
Discharge Summary Date of Admission: 12/05/22 15:48 Date of Discharge: 12/07/2022 Admitting Physician: CHERYL PORTILLO MD Primary Care Provider: SWATI GOMEZ Allergies Allergies Sulfa (Sulfonamide Antibiotics) Allergy (Mild, Verified 12/05/22 12:11) Hospital Summary - Hospital Course Hospital Course: 32 y/o F with no past medical history, who presented to [facility] on 12/05 with frequent NBNB vomiting, poor PO intake, dehydration, fevers, and severe sore throat. Had also had transient hematuria, but no dysuria. No sick contacts. She was found to have Streptococcus pharyngitis, with leukocytosis at 20. UTI was ruled out with negative urine cultures. She improved well on Rocephin for Strep coverage, with resolution of her nausea and leukocytosis, increased PO intake, and decreasing pain. She was able to eat watermelon on day of discharge, and ambulate without difficulty. She will be discharged to complete a ten-day course of Penicillin V as an outpatient, to end on 12/15. - Vitals & Intake/Output Vital Signs: Vital Signs Temperature 98.2 F 12/07/22 06:58 Pulse Rate 69 12/07/22 06:58 Respiratory Rate 16 12/07/22 06:58 Blood Pressure 129/84 12/07/22 06:58 O2 Sat by Pulse Oximetry 98 12/07/22 06:58 Intake & Output: Intake & Output 12/04/22 12/05/22 12/06/22 12/07/22 11:59 11:59 11:59 11:59 Intake Total 2082 2562 Output Total 1250 500 Balance 832 2062 Weight 79.379 kg 83.4 kg 83.4 kg - Lab Result Diagrams: 12/07/22 04:30 12/07/22 04:30 Lab Results-Last 24 Hrs: Lab Results-Last 24 Hours 12/07/22 12/07/22 Range/Units 04:30 04:30 WBC 7.4 (4.0-10.5) x10^3/uL RBC 3.36 L (4.1-5.4) x10^6/uL Hgb 10.2 L (12.0-16.0) g/dL Hct 30.3 L (35-47) % MCV 90.2 (78-100) fL MCH 30.4 (26-32) pg MCHC 33.7 (32-36) g/dL RDW 13.1 (11.5-14.0) % Plt Count 225 (150-450) x10^3/uL MPV 9.6 (7.5-11.0) fL Sodium 138 (137-145) mmol/L Potassium 3.6 (3.5-5.1) mmol/L Chloride 105 (98-107) mmol/L Carbon Dioxide 22 (22-30) mmol/L Anion Gap 14.1 (5-15) MEQ/L BUN 12 (7-17) mg/dL Creatinine 0.53 (0.52-1.04) mg/dL Estimated GFR > 60.0 ML/MIN Glucose 90 (74-106) mg/dL Calcium 7.9 L (8.4-10.2) mg/dL Micro Results-Entire Visit: Microbiology 12/05/22 11:56 Urine Culture - Final Clean Catch Midstream MIXED BAHMAN; 3 OR MORE TYPES. NO PREDOMINANT ORGANISM. NO FURTHER WORKUP. PLEASE RESUBMIT IF CLINICALLY INDICATED. Group A Strep detected. Flu, COVID negative. - Radiology Exams Ordered Rad Exams-Entire Visit: Radiology Procedures Category Date Time Status ABDOMEN AND PELVIS W/0 CONTRAS [CT] Stat Exams 12/05/22 11:07 Completed CHEST 1 VIEW (PORTABLE) Stat Exams 12/05/22 13:40 Completed HEAD WITHOUT CONTRAST [CT] Stat Exams 12/05/22 11:06 Completed CXR: Portable chest again demonstrates normal heart, lungs, and bony thorax. CT Abd/pelvis: 1. No evidence of urolithiasis. 2. Small bilateral ovarian cysts, likely functional. 3. Small umbilical hernia containing fat. 4. 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 5. No acute intra-abdominal abnormality. CT Head: 1. Essentially normal CT study of the brain. 2. Enlarged nasopharyngeal soft tissue, clinical correlation is recommended, and direct visualization may also be recommended as clinically indicated. - Procedures and Test Procedures and Tests throughout Hospitalization: Therapy Orders & Screens 12/05/22 17:41 ST Screen per Nursing Assess ONCE Comment: Protocol Order Physician Instructions: Greater than [address] Admission Screening Reason For Exam: Triggered on Admission Diagnosis: Sepsis/acute pharyngitis/nausea vomiting/dehydration CVA/Dyshpagia/Aphasia: No Cognitive Deficits: No Dehydration/Nutrition Deficit: Yes Reflux: No Oral-Motor Difficulties: No Pneumonia: No Usp Resident: No Total Points: 5 Discharge Exam General Appearance: no apparent distress Neurologic Exam: alert, oriented x 3, normal mood/affect Ears, Nose, Throat Exam: normal ENT inspection Respiratory Exam: normal breath sounds, No respiratory distress, No accessory muscle use Cardiovascular Exam: regular rate/rhythm, normal heart sounds, edema, No murmur Gastrointestinal/Abdomen Exam: soft, No tenderness, No distention Skin Exam: No rash Final Diagnosis/Problem List - Final Discharge Diagnosis/Problem (1) Acute streptococcal pharyngitis Current Visit: Yes Status: Acute Code(s): J02.0 - STREPTOCOCCAL PHARYNGITIS - Discharge Disposition: Home, Self-Care Condition: Stable Prescriptions: New Penicillin V Potassium 500 mg PO TID #24 tablet Instructions: Strep Throat ED Additional Instructions: 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 Follow up with: SWATI GOMEZ MD [Primary Care Provider] - Telemedicine Encounter - Telemedicine Encounter Telemedicine Encounter: The entirety of this encounter was performed via Telemedicine" Greater than 30 minutes spent arranging discharge.
[2022-12-07 11:50] VITALS: PULSE 87; O2SAT 96
[2022-12-07 11:51] VITALS: BP 137/81
== END 2022-12-07 16:15 | disposition home or self-care (01) ==
LOC: ED 08:44 → MED SURG 15:48
PROVIDERS: ADMIT Internal Medicine; ATTEND Internal Medicine
DX: J02.0 Streptococcal pharyngitis (principal); E86.0 Dehydration; Z20.828 Contact with and (suspected) exposure to other viral communicable diseases
CPT/HCPCS: 0241U; 36000; 36415; 70450; 71045; 74176; 80048; 80053; 81001; 83605; 83690; 84145; 84703; 85025; 85027; 87040; 87086; 87651; 93268; 96374; 96375; 99285; G0378; Q3014; J0696; J2270; J2405; A9270-GY

== ENCOUNTER 2024-10-22 11:49 | Emergency (ER) | payer BC, SELFPAY ==
[2024-10-22 12:03] VITALS: BP 120/67; PULSE 63; O2SAT 97
--- NOTE | 2024-10-22 12:07 | ERPHSYRPT ---
- History of Present Illness Source: patient Exam Limitations: no limitations Physician History: The patient's right foot slid forward and she went down and landed on her left patella. She has a hematoma there. She has pain on her patella. She does not have any exquisite pain when she walks. There is no other trauma. Pain is aching. Palpation and walking makes it worse. Rest ice and elevate makes it better. Allergies/Adverse Reactions: Sulfa (Sulfonamide Antibiotics) Allergy (Mild, Verified 10/22/24 11:54) Home Medications: Escitalopram Oxalate [Lexapro] 10 mg PO HS 10/22/24 [History] acetaZOLAMIDE [Acetazolamide ER] 500 mg PO HS 10/22/24 [History] Hx Tetanus, Diphtheria Vaccination/Date Given: Yes Hx Influenza Vaccination/Date Given: No Hx Pneumococcal Vaccination/Date Given: No - Review of Systems Constitutional: No Symptoms Eyes: No Symptoms Skin: No Symptoms Neurological: No Symptoms All Other Systems: Reviewed and Negative - Past Medical History Pertinent Past Medical History: No Neurological History: No Pertinent History ENT History: No Pertinent History Cardiac History: No Pertinent History Respiratory History: No Pertinent History Endocrine Medical History: No Pertinent History Musculoskeletal History: No Pertinent History GI Medical History: No Pertinent History History: No Pertinent History Psycho-Social History: No Pertinent History Female Reproductive Disorders: No Pertinent History - Past Surgical History Past Surgical History: Yes (tubes in ears) Neuro Surgical History: No Pertinent History Cardiac: No Pertinent History Respiratory: No Pertinent History Gastrointestinal: No Pertinent History Genitourinary: No Pertinent History Musculoskeletal: No Pertinent History Female Surgical History: Section Other Surgical History: 2020 and 2022 - Social History Smoking Status: Never smoker Exposure to second hand smoke: No Drug Use: none Patient Lives Alone: No - Nursing Vital Signs Nursing Vital Signs: Initial Vital Signs Pulse Rate 62 10/22/24 11:57 Blood Pressure 123/68 10/22/24 11:57 O2 Sat by Pulse Oximetry 97 10/22/24 11:57 Pain Scale Pain Intensity 2 - Physical Exam General Appearance: no apparent distress Hips Exam: bilateral: non-tender, normal inspection, normal range of motion Legs Exam: bilateral leg: non-tender, normal inspection, normal range of motion Knees Exam: left knee: pain, swelling (Hematoma on top of the inferior portion of the patella. The rest the knee is very stable) Ankle Exam: bilateral ankle: non-tender, normal inspection, normal range of motion, no evidence of injury Foot Exam: bilateral foot: non-tender, normal inspection, normal range of motion, no evidence of injury SpO2: 97 Ordered Tests: Active Orders 24 hr Category Date Time Status PATELLA (3 VIEWS) Stat Exams 10/22/24 12:20 Taken - Progress Progress: unchanged Progress Note: 3 view of the knee with a sunrise view was done. The x-ray was interpreted by me independently. There is no acute fractures. I think the patient just has a hematoma. I am going to have her rest ice elevate Tylenol and Advil as needed. 10/22/24 12:22 - Departure Departure Disposition: Home Clinical Impression: Contusion of left patella Condition: Stable Critical Care Time: No Referrals: SWATI GOMEZ MD [Primary Care Provider, [facility]] - Follow up/PCP as directed Instructions: Minor contusion - ED discharge instructions
--- NOTE | 2024-10-22 12:30 | XRAY ---
Indication: Trauma. Comparison: None 3 view left patella demonstrates prepatella soft tissue swelling versus bursitis. No other bony, articular, or soft tissue abnormalities.
== END 2024-10-22 12:33 | disposition home or self-care (01) ==
LOC: ED 11:49
DX: S80.02XA Contusion of left knee, initial encounter (principal); W01.0XXA Fall on same level from slipping, tripping and stumbling without subsequent striking against object, initial encounter; Z79.899 Other long term (current) drug therapy
CPT/HCPCS: 73562; 99283